=== PATIENT | male | born 1980 ===

== ENCOUNTER 2018-12-02 13:44 | Inpatient (IN) | payer OTHER ==
[2018-12-02 14:01] VITALS: BMI 30.9
[2018-12-02] MEDS ORDERED: Sodium Chloride 0.9% 1,000 ML IV STA ×2 (14:26→14:37)
--- NOTE | 2018-12-02 14:59 | ED PDOC ---
HPI: Skin/Bite Injury Time Seen by Provider: 12/02/18 14:22 Chief Complaint (Nursing): Abnormal Skin Integrity Chief Complaint (Provider): Fever and pain to the left buttock History Per: Patient History/Exam Limitations: no limitations Onset/Duration Of Symptoms: Days (2) Current Symptoms Are (Timing): Still Present Location Of Injury: Left: Buttock Quality Of Symptoms: Painful Additional Complaint(s): 38 year old male presents to the ED for an evaluation of fever and pain to the left buttock onset for one weeks. Patient thinks he has an abscess that was not there before. Patient states his brother gets them frequently. Initially, patient had bumps 2 days ago that became painful that patient cannot lay flat on his back. He feels weak, fibrile and has body aches. Otherwise, he denies any other complaints. Past Medical History Reviewed: Historical Data, Nursing Documentation, Vital Signs Vital Signs: Last Vital Signs Temp 100.6 F H 12/02/18 14:07 Pulse 143 H 12/02/18 14:00 Resp 16 12/02/18 14:00 BP 130/89 12/02/18 14:00 Pulse Ox 97 12/02/18 14:00 - Medical History PMH: Diabetes - Surgical History Other surgeries: kidney transplant 6 years ago - Family History Family History: States: Unknown Family Hx - Home Medications Home Medications: Ambulatory Orders Medication Instructions Recorded Linagliptin [Tradjenta] 5 mg PO DAILY 12/02/[address] [Myfortic DR] 720 mg PO Q12 12/02/18 Tacrolimus [Prograf Cap] 5 mg PO Q12 12/02/18 predniSONE 2.5 mg PO QPM 12/02/18 predniSONE [predniSONE Tab] 5 mg PO DAILY 12/02/18 - Allergies Allergies/Adverse Reactions: Allergies Allergy/AdvReac Type Severity Reaction Status Date / Time No Known Allergies Allergy Verified 12/02/18 14:03 Review of Systems ROS Statement: Except As Marked, All Systems Reviewed And Found Negative Constitutional: Positive for: Fever, Weakness, Other (body ache ) Musculoskeletal: Positive for: Other (pain to the left buttock). Negative for: Leg Pain Physical Exam - Reviewed Nursing Documentation Reviewed: Yes Vital Signs Reviewed: Yes - Physical Exam Appears: Positive for: Well, Non-toxic, No Acute Distress Head Exam: Positive for: ATRAUMATIC, NORMAL INSPECTION, NORMOCEPHALIC Skin: Positive for: Normal Color, Warm, Dry Eye Exam: Positive for: Normal appearance Cardiovascular/Chest: Positive for: Regular Rate, Rhythm, Tachycardia Respiratory: Positive for: Normal Breath Sounds. Negative for: Respiratory Distress Gastrointestinal/Abdominal: Positive for: Normal Exam, Soft. Negative for: Ten derness Back: Positive for: Normal Inspection (No current drainage, no active drainage. Anus is normal ), Other (Left buttock: erythematous, tense, center appears to be open, positive induration. ) Neurological/Psych: Positive for: Awake, Alert, Normal Tone, Oriented (x3) - Laboratory Results Result Diagrams: 12/04/18 04:31 12/04/18 04:31 - ECG O2 Sat by Pulse Oximetry: 97 (RA) Pulse Ox Interpretation: Normal Medical Decision Making Medical Decision Making: Time: 14:25 Impression: 38 y/o male with abscess with possible sepsis. Patient has tachycardia and tachypneic. Will proceed with sepsis protocol. Further labs and culture. Will start patient on Acetaminophen and reassess patient Plan: BBK type and screen Venous blood shock panel BMP CBC w/ differential PTT Prothrombin Time Normal Saline 1000 mls/hr Toradol 30mg Acetaminophen 975mg Culture blood Wound culture 15:[address] Marshall pending reevaluation Scribe Attestation: Documented by Shanell Hoskins, acting as a scribe for Rose Marie Quesada MD Provider Scribe Attestation: All medical record entries made by the Scribe were at my direction and personally dictated by me. I have reviewed the chart and agree that the record accurately reflects my personal performance of the history, physical exam, medical decision making, and the department course for this patient. I have also personally directed, reviewed, and agree with the discharge instructions and disposition. Disposition - Clinical Impression Clinical Impression: Severe sepsis, Cellulitis and abscess of buttock, DKA (diabetic ketoacidoses) - Disposition Disposition: Transfer of Care Disposition Time: 15:00 Condition: FAIR Patient Signed Over To: Campbell Marshall
[2018-12-02 15:13] LABS: VENOUS BLOOD GAS BASE EXCESS -14.3 mmol/L (0.0-2.0); VENOUS BLOOD GAS PCO2 28 mmHg (40-60); VENOUS BLOOD GAS PO2 28 mm/Hg (30-55); VENOUS BLOOD PH 7.23 (7.32-7.43)
[2018-12-02 15:29] LABS: BASO % 0.2 % (0.0-2.0); EOS % 0.2 % (0.0-4.0); HEMOGLOBIN 14.9 g/dL (12.0-18.0); LYMPH # 0.3 K/uL (1.0-4.3); LYMPH % 1.9 % (20.0-40.0); MEAN CELL VOLUME 85.1 fl (80.0-94.0); MEAN CORPUSCULAR HEMOGLOBIN 27.4 pg (27.0-31.0); MEAN CORPUSCULAR HGB CONC 32.2 g/dL (33.0-37.0); MEAN PLATELET VOLUME 9.1 fl (7.2-11.7); MONO # 1.7 K/uL (0.0-0.8); MONO % 10.3 % (0.0-10.0); NEUT # 14.6 K/uL (1.8-7.0); NEUT % 87.4 % (50.0-75.0); NRBC % 0.1 % (0.0-0.0); PLATELET COUNT 249 K/uL (130-400); RBC 5.43 Mil/uL (4.40-5.90); RED CELL DISTRIBUTION WIDTH 13.1 % (11.5-14.5); WHITE BLOOD COUNT 16.8 K/uL (4.8-10.8)
[2018-12-02 15:35] LABS: INR 1.1; PROTHROMBIN TIME 12.5 Seconds (9.8-13.1)
[2018-12-02 15:37] LABS: PARTIAL THROMBOPLASTIN TIME 32.7 Seconds (25.6-37.1)
[2018-12-02 15:54] LABS: CALCIUM 9.9 mg/dL (8.4-10.2)
[2018-12-02] MEDS ORDERED: Insulin Regular 100 units/ml SC STA (15:54)
[2018-12-02] MEDS ORDERED: Glucagon Recombinant 1 mg Inj IM PRN (16:01)
[2018-12-02] MEDS ORDERED: Dextrose 50% SYRINGE Inj (50 ml) IV PRN (16:01)
--- NOTE | 2018-12-02 16:11 | ED PDOC ---
- Laboratory Results Result Diagrams: 12/02/18 14:30 12/02/18 14:30 Lab Results: pO2 28 mm/Hg (30-55) L 12/02/18 15:03 VBG pH 7.23 (7.32-7.43) L 12/02/18 15:03 VBG pCO2 28 mmHg (40-60) L 12/02/18 15:03 VBG HCO3 12.2 mmol/L 12/02/18 15:03 VBG Total CO2 12.6 mmol/L (22-28) L 12/02/18 15:03 VBG O2 Sat (Calc) 54.5 % (40-65) 12/02/18 15:03 VBG Base Excess -14.3 mmol/L (0.0-2.0) L 12/02/18 15:03 VBG Potassium 5.2 mmol/L (3.6-5.2) 12/02/18 15:03 Sodium 127.0 mmol/L (132-148) L 12/02/18 15:03 Chloride 89.0 mmol/L (98-107) L 12/02/18 15:03 Glucose 470 mg/dL (75-110) H* 12/02/18 15:03 Lactate 2.2 mmol/L (0.7-2.1) H 12/02/18 15:03 FiO2 21.0 % 12/02/18 15:03 Blood Gas Comments Lac=2.2 12/02/18 15:03 Crit Value Called To brandi Brower 12/02/18 15:03 Crit Value Called By 22 12/02/18 15:03 Crit Value Read Back Y 12/02/18 15:03 Blood Gas Notified Time 1513 12/02/18 15:03 PT 12.5 Seconds (9.8-13.1) 12/02/18 14:30 INR 1.1 12/02/18 14:30 APTT 32.7 Seconds (25.6-37.1) 12/02/18 14:30 - ECG O2 Sat by Pulse Oximetry: 97 (RA) - Progress Re-evaluation Time: 16:12 Condition: Re-examined - Critical Care Total Time (In Min): 60 Documented Critical Care: Time excludes all time spent performint seperately billable procedures Medical Decision Making Medical Decision Making: Pt has severe sepsis with lactae of 2.2 with cellulitis as source. Will start on IV Zosyn and Vanco but adjust dose for h/o renal transplant. IV fluids with bolus given. Pt also in DKA with anion gap 28 and HCO3 10. Insulin drip started. Will admit to ICU and med service Disposition - Clinical Impression Clinical Impression: Severe sepsis, Cellulitis and abscess of buttock, DKA (diabetic ketoacidoses) - POA Present On Arrival: None - Disposition Disposition: Admitted as In-Patient Disposition Time: 16:12 Condition: FAIR Forms: [facility] (Bulgarian)
[2018-12-02] MEDS ORDERED: Insulin Regular 100 units/ml ONE (16:19)
--- NOTE | 2018-12-02 17:47 | CP.CCUPN ---
<LowesSultan - Last Filed: 12/02/18 18:41> CCU Subjective - Physician Review Subjective (Free Text): 12/02/18 17:40 38 year old Male with PMHx renal transplant 6 years ago secondary to polycystic kidney disease and DMII diagnosed a year ago presented to [facility] ED with complaints of tactile fever (100.0 F tmax at home) x 2 days associated with abscess on left gluteus draining serosanguinous fluids x 4 days. Patient reports left buttock has discomfort but denies any severe pain. Patient was taking Tylenol for tactile fever. Denies any injury or insect bites to gluteal area. Denies any nausea, vomiting, chills, abdominal pain, dizziness, hematuria or dysuria. In ED, patient was found to be tachycardiac and febrile. CBC shows WBC of 16.8 with LA of 2.2. Patient was also found to be hyperglycemic with glucose of 470 and DKA. ICU was consulted for management of sepsis and DKA. ROS: All 12 systems reviewed and negative except as mentioned in HPI PMHx: polycystic kidney disease s/p B/L renal transplant, DMII Surgery hx: B/L renal transplant Social hx: Denies smoking cigarettes or using drugs. Social EtOH use Family hx: Father: PKD Allergies: NKDA Medications: Prednisone 5 mg AM, 2.5 mg PM, Linagliptin 5 mg po daily, Mycophenolic acid 720 mg po BID, tacrolimus 5 mg po q12 [employer] Safety [employer] Health Technician: Dr. Mehta at [facility] CCU Objective - Vital Signs / Intake & Output Vital Signs (Last 4 hours): Vital Signs Temp Pulse Resp BP Pulse Ox 12/02/18 17:03 105 H 18 122/86 99 12/02/18 16:12 97 12/02/18 16:11 99 F 12/02/18 15:12 97 12/02/18 15:11 100.4 F H 12/02/18 14:07 100.6 F H 12/02/18 14:00 98.4 F 143 H 16 130/89 97 Intake and Output (Last 8hrs): Intake & Output 12/02/18 12/02/18 12/02/18 06:59 14:59 22:59 Weight 112.491 kg - Physical Exam Head: Positive for: Atraumatic, Normocephalic Pupils: Positive for: PERRL Extroacular Muscles: Positive for: EOMI Conjunctiva: Positive for: Normal Mouth: Positive for: Moist Mucous Membranes Pharnyx: Positive for: Normal Neck: Positive for: Normal Range of Motion. Negative for: Meningeal Signs, MIDLINE TENDERNESS, Lymphadenopathy Respiratory/Chest: Positive for: Clear to Auscultation, Good Air Exchange. Negative for: Respiratory Distress, Accessory Muscle Use, Wheezes, Decreased Breath Sounds, Rhonchi Cardiovascular: Positive for: Regular Rate and Rhythm, Normal S1, S2, Tachycardic. Negative for: Murmurs Abdomen: Positive for: Distention, Normal Bowel Sounds. Negative for: Tenderness, Peritoneal Signs, Rebound, Guarding Genitourinary Male: Positive for: Other Back: Positive for: Other (5 cm x 5 cm erythematous, warm indurated area on left gluteal with cental skin erosion and mild drainage. No fluctuance. non-tender. Car Deliverer: SOUMYA Ramires) Upper Extremity: Positive for: Normal Inspection. Negative for: Edema Lower Extremity: Positive for: Normal Inspection. Negative for: Edema, CALF TENDERNESS Neurological: Positive for: GCS=15, CN II-XII Intact, Speech Normal Skin: Positive for: Warm, Normal Color Psychiatric: Positive for: Alert, Oriented x 3, Normal Insight, Normal Concentration - Medications Active Medications: Active Medications Generic Name Dose Route Start Last Admin Trade Name Freq PRN Reason Stop Dose Admin Dextrose 0 ml 12/02/18 16:01 Dextrose 50% Inj IV STAT PRN Hypoglycemia Protocol Protocol Dextrose 0 gm 12/02/18 16:01 Glutose 15 PO ONCE PRN Hypoglycemia Protocol Protocol Glucagon 0 mg 12/02/18 16:01 Glucagen Diagnostic Kit IM STAT PRN Hypoglycemia Protocol Protocol Insulin Human Regular 100 101 mls @ 10.1 mls/hr 12/02/18 16:15 12/02/18 17:03 units/ Sodium Chloride IV 10.1 mls/hr .Q10H ELIESER Administration Protocol 10 UNITS/HR - Patient Studies Lab Studies: Lab Studies 12/02/18 12/02/18 12/02/18 Range/Units 16:21 15:03 14:30 WBC (4.8-10.8) K/uL RBC (4.40-5.90) Mil/uL Hgb (12.0-18.0) g/dL Hct (35.0-51.0) % MCV (80.0-94.0) fl MCH (27.0-31.0) pg MCHC (33.0-37.0) g/dL RDW (11.5-14.5) % Plt Count (130-400) K/uL MPV (7.2-11.7) fl Neut % (Auto) (50.0-75.0) % Lymph % (Auto) (20.0-40.0) % Thomas % (Auto) (0.0-10.0) % Eos % (Auto) (0.0-4.0) % Baso % (Auto) (0.0-2.0) % Neut # (Auto) (1.8-7.0) K/uL Lymph # (Auto) (1.0-4.3) K/uL Thomas # (Auto) (0.0-0.8) K/uL Eos # (Auto) (0.0-0.7) K/uL Baso # (Auto) (0.0-0.2) K/uL PT 12.5 (9.8-13.1) Seconds INR 1.1 APTT 32.7 (25.6-37.1) Seconds pO2 28 L (30-55) mm/Hg VBG pH 7.23 L (7.32-7.43) VBG pCO2 28 L (40-60) mmHg VBG HCO3 12.2 mmol/L VBG Total CO2 12.6 L (22-28) mmol/L VBG O2 Sat (Calc) 54.5 (40-65) % VBG Base Excess -14.3 L (0.0-2.0) mmol/L VBG Potassium 5.2 (3.6-5.2) mmol/L Glucose 470 H* (75-110) mg/dL Lactate 2.2 H (0.7-2.1) mmol/L FiO2 21.0 % Blood Gas Comments Lac=2.2 Crit Value Called To brandi Brower Crit Value Called By 22 Crit Value Read Back Y Blood Gas Notified Time 1513 Sodium 127.0 L (132-148) mmol/l Potassium (3.6-5.0) MMOL/L Chloride 89.0 L (98-107) mmol/L Carbon Dioxide (22-30) mmol/L Anion Gap (10-20) BUN (9-20) mg/dl Creatinine (0.8-1.5) mg/dl Est GFR ( Amer) Est GFR (Non-Af Amer) POC Glucose (mg/dL) 462 H* (65-110) mg/dL Random Glucose (75-110) mg/dL Calcium (8.4-10.2) mg/dL Venous Blood Potassium 5.2 (3.6-5.2) mmol/L 12/02/18 12/02/18 Range/Units 14:30 14:30 WBC 16.8 H (4.8-10.8) K/uL RBC 5.43 (4.40-5.90) Mil/uL Hgb 14.9 (12.0-18.0) g/dL Hct 46.2 (35.0-51.0) % MCV 85.1 (80.0-94.0) fl MCH 27.4 (27.0-31.0) pg MCHC 32.2 L (33.0-37.0) g/dL RDW 13.1 (11.5-14.5) % Plt Count 249 (130-400) K/uL MPV 9.1 (7.2-11.7) fl Neut % (Auto) 87.4 H (50.0-75.0) % Lymph % (Auto) 1.9 L (20.0-40.0) % Thomas % (Auto) 10.3 H (0.0-10.0) % Eos % (Auto) 0.2 (0.0-4.0) % Baso % (Auto) 0.2 (0.0-2.0) % Neut # (Auto) 14.6 H (1.8-7.0) K/uL Lymph # (Auto) 0.3 L (1.0-4.3) K/uL Thomas # (Auto) 1.7 H (0.0-0.8) K/uL Eos # (Auto) 0.0 (0.0-0.7) K/uL Baso # (Auto) 0.0 (0.0-0.2) K/uL PT (9.8-13.1) Seconds INR APTT (25.6-37.1) Seconds pO2 (30-55) mm/Hg VBG pH (7.32-7.43) VBG pCO2 (40-60) mmHg VBG HCO3 mmol/L VBG Total CO2 (22-28) mmol/L VBG O2 Sat (Calc) (40-65) % VBG Base Excess (0.0-2.0) mmol/L VBG Potassium (3.6-5.2) mmol/L Glucose (75-110) mg/dL Lactate (0.7-2.1) mmol/L FiO2 % Blood Gas Comments Crit Value Called To Crit Value Called By Crit Value Read Back Blood Gas Notified Time Sodium 128 L (132-148) mmol/l Potassium 5.0 (3.6-5.0) MMOL/L Chloride 95 L (98-107) mmol/L Carbon Dioxide 10 L* (22-30) mmol/L Anion Gap 28 H (10-20) BUN 31 H (9-20) mg/dl Creatinine 1.9 H (0.8-1.5) mg/dl Est GFR ( Amer) 49 Est GFR (Non-Af Amer) 40 POC Glucose (mg/dL) (65-110) mg/dL Random Glucose 449 H* (75-110) mg/dL Calcium 9.9 (8.4-10.2) mg/dL Venous Blood Potassium (3.6-5.2) mmol/L Laboratory Results - last 24 hr 12/02/18 12/02/18 12/02/18 14:30 14:30 14:30 WBC 16.8 H RBC 5.43 Hgb 14.9 Hct 46.2 MCV 85.1 MCH 27.4 MCHC 32.2 L RDW 13.1 Plt Count 249 MPV 9.1 Neut % (Auto) 87.4 H Lymph % (Auto) 1.9 L Thomas % (Auto) 10.3 H Eos % (Auto) 0.2 Baso % (Auto) 0.2 Neut # (Auto) 14.6 H Lymph # (Auto) 0.3 L Thomas # (Auto) 1.7 H Eos # (Auto) 0.0 Baso # (Auto) 0.0 PT 12.5 INR 1.1 APTT 32.7 pO2 VBG pH VBG pCO2 VBG HCO3 VBG Total CO2 VBG O2 Sat (Calc) VBG Base Excess VBG Potassium Glucose Lactate FiO2 Blood Gas Comments Crit Value Called To Crit Value Called By Crit Value Read Back Blood Gas Notified Time Sodium 128 L Potassium 5.0 Chloride 95 L Carbon Dioxide 10 L* Anion Gap 28 H BUN 31 H Creatinine 1.9 H Est GFR ( Amer) 49 Est GFR (Non-Af Amer) 40 POC Glucose (mg/dL) Random Glucose 449 H* Calcium 9.9 Venous Blood Potassium 12/02/18 12/02/18 15:03 16:21 WBC RBC Hgb Hct MCV MCH MCHC RDW Plt Count MPV Neut % (Auto) Lymph % (Auto) Thomas % (Auto) Eos % (Auto) Baso % (Auto) Neut # (Auto) Lymph # (Auto) Thomas # (Auto) Eos # (Auto) Baso # (Auto) PT INR APTT pO2 28 L VBG pH 7.23 L VBG pCO2 28 L VBG HCO3 12.2 VBG Total CO2 12.6 L VBG O2 Sat (Calc) 54.5 VBG Base Excess -14.3 L VBG Potassium 5.2 Glucose 470 H* Lactate 2.2 H FiO2 21.0 Blood Gas Comments Lac=2.2 Crit Value Called To brandi Brower Crit Value Called By 22 Crit Value Read Back Y Blood Gas Notified Time 1513 Sodium 127.0 L Potassium Chloride 89.0 L Carbon Dioxide Anion Gap BUN Creatinine Est GFR ( Amer) Est GFR (Non-Af Amer) POC Glucose (mg/dL) 462 H* Random Glucose Calcium Venous Blood Potassium 5.2 Fingerstick Blood Sugar Results: 462 Review of Systems - Review of Systems Review of Systems: All 12 systems reviewed and negative except as mentioned in HPI Assessment/Plan - Assessment and Plan (Free Text) Assessment: 38 year old Male with PMHx renal transplant 6 years ago secondary to polycystic kidney disease and DMII admitted to ICU for DKA and sepsis Sepsis likely secondary to left gluteal abscess -Low grade fever (100.6 in ED) and tachycardia -wbc 16.8 with LA 2.2 -s/p 2 L NS in ED -s/p Vanco 500 mg ivpv and zosyn 2.25 mg ivpb in ED -c/w Vancomycin 500 mg q12 -ID consult: Dr. Torres, recommends Meropenem 500 mg q8 hours -General surgery consult: f/u recs -F/U CT pelvis -F/U blood cx, urine cx and wound cx Diabetic Ketoacidosis -awake, alert and oriented, not in acute distress -VBG shows Ph of 7.23, Anion gap of 28 with HCO3 of 10 -s/p 10 units SC regular insulin in ED -Insulin drip started in ED @10 units/hr -Neurocheck -f/u ABG and AM labs Diet: -moderate carbohydrate diet DVT prophylaxis: -SCDs for now Plan discussed with Dr. Thanh Saldaña, pgy-2 <[employer] - Last Filed: 12/03/18 07:29> Assessment/Plan - Assessment and Plan (Free Text) Plan: Attestation: Patient seen and examined at the bedside with Resident Dr. Sagrario Saldaña; and I agree with his outline of plans and management documented above as discussed, reflecting my review of all applicable clinical data, and participation in the care of the patient throughout the day in ICU; today, December 02, 2018.
[2018-12-02 18:26] LABS: BANDS 4 % (0-2); BASOPHIL 1 % (0-2); LYMPHOCYTE 8 % (20-50); MONOCYTE 11 % (0-10); NEUTROPHIL 76 % (42-75); PLATELET ESTIMATE NORMAL (NORMAL); TOTAL CELLS COUNTED 100
--- NOTE | 2018-12-02 18:44 | CT ---
Date of service: 12/02/2018 PROCEDURE: CT pelvis HISTORY: r/o abscess of left buttock COMPARISON: Not available TECHNIQUE: 2.5 mm contiguous axial sections were acquired through the pelvis. Sagittal and coronal images were reformatted from the axial scan. Contrast administered: None Total exam DLP: 926.23 mGy-cm This CT exam was performed using 1 or more of the following dose reduction techniques: Automated exposure control, adjustment of the mA and/or kV according to patient size, and/or use of iterative reconstruction technique. FINDINGS: In the left gluteal subcutaneous soft tissues, there is heterogeneous increased attenuation. There is thickening of the overlying skin. There is some confluent density without jamie fluid collection. Likely phlegmon within the generalized picture of cellulitis. This phlegmon demonstrate mild mass effect upon the left gluteus renzo muscle. There is no evidence of myositis. No evidence of abscess or cellulitis elsewhere. There is a transplant kidney in the right iliac fossa. No hydronephrosis. The urinary bladder is unremarkable. Normal prostate. Visualized bowel loops are unremarkable. IMPRESSION: Left gluteal cellulitis with probable phlegmon. No evidence of jamie abscess.
[2018-12-02] MEDS ORDERED: Lidocaine 2% Inj (20ml) INFIL ONE (19:47)
[2018-12-02] MEDS ORDERED: Povidone Iodine Oint 10% Foilpak UD ONE (19:49)
[2018-12-02] MEDS: Meropenem 500 MG in Sodium Chloride 0.9% 100 ML IVPB SCH (20:34)
[2018-12-02 20:59] LABS: SQUAMOUS EPITHIAL 2 /hpf (0-5); URINE BACTERIA OCC (<OCC); URINE BILIRUBIN NEGATIVE (NEGATIVE); URINE BLOOD SMALL (NEGATIVE); URINE CLARITY TURBID (Clear); URINE COLOR YELLOW (YELLOW); URINE GLUCOSE (UA) >=500 mg/dL (NEGATIVE); URINE LEUKOCYTE ESTERASE LARGE Leu/uL (Negative); URINE PROTEIN 100 mg/dL (NEGATIVE); URINE UROBILINOGEN 0.2-1.0 mg/dL (0.2-1.0); WBC CLUMPS RARE /hpf
--- NOTE | 2018-12-02 21:06 | CP.PCM.CON ---
History of Present Illness - History of Present Illness History of Present Illness: 38M with PMHx of DM, polycystic kidney disease s/p renal transplant 6 years ago, presents to the ED with complaints of left buttock pain and fever. General surgery consulted for left buttock abscess. Patient states he first noted butto ck abscess on Wednesday however, today he became febrile which prompted him to come to the hospital. Patient reports fevers and left buttock pain. Patient found to be in DKA as well. PMH: as stated above PSH: renal transplant 2012 All: NKDA Review of Systems - Review of Systems All systems: reviewed and no additional remarkable complaints except Review of Systems: as per HPI Past Patient History - Past Social History Smoking Status: Never Smoked - RENAL Other/Comment: Kidney transplant - ENDOCRINE/METABOLIC Hx Diabetes Mellitus Type 2: Yes - PSYCHIATRIC Hx Substance Use: No - SURGICAL HISTORY Hx Kidney Transplant: Yes - ANESTHESIA Hx Anesthesia: Yes Meds Allergies/Adverse Reactions: Allergies Allergy/AdvReac Type Severity Reaction Status Date / Time No Known Allergies Allergy Verified 12/02/18 14:03 - Medications Medications: Current Medications Dextrose (Dextrose 50% Inj) 0 ml IV STAT PRN; Protocol PRN Reason: Hypoglycemia Protocol Dextrose (Glutose 15) 0 gm PO ONCE PRN; Protocol PRN Reason: Hypoglycemia Protocol Glucagon (Glucagen Diagnostic Kit) 0 mg IM STAT PRN; Protocol PRN Reason: Hypoglycemia Protocol Home Med (Mycophenolic Acid Dr [Myfortic Dr]) 720 mg PO Q12 [facility] Insulin Human Regular 100 (units/ Sodium Chloride) 101 mls @ 10.1 mls/hr IV .Q10H [facility]; Protocol Last Admin: 12/02/18 17:03 Dose: 10.1 mls/hr Meropenem 500 mg/ Sodium (Chloride) 100 mls @ 100 mls/hr IVPB Q8 [facility]; Protocol Last Admin: 12/02/18 20:34 Dose: 100 mls/hr Vancomycin HCl 500 mg/ Sodium (Chloride) 100 mls @ 100 mls/hr IVPB Q12 [facility]; P rotocol Prednisone (Prednisone Tab) 5 mg PO DAILY [facility] Prednisone (Prednisone Tab) 2.5 mg PO QPM [facility] Sitagliptin Phosphate (Januvia) 100 mg PO DAILY [facility] Tacrolimus (Prograf Cap) 5 mg PO Q12 [facility] Physical Exam - Constitutional Appears: No Acute Distress - Head Exam Head Exam: NORMOCEPHALIC - Eye Exam Eye Exam: Normal appearance - ENT Exam ENT Exam: Mucous Membranes Moist - Respiratory Exam Respiratory Exam: NORMAL BREATHING PATTERN - Cardiovascular Exam Cardiovascular Exam: +S1, +S2 - GI/Abdominal Exam GI & Abdominal Exam: Soft. absent: Tenderness - Neurological Exam Neurological exam: Alert, Oriented x3 - Psychiatric Exam Psychiatric exam: Normal Mood - Skin Skin Exam: Erythema, Warm Additional comments: left buttock abscess with central necrotic region fluctuant purulent drainage Results - Vital Signs Recent Vital Signs: Last Vital Signs Temp 98.4 F 12/02/18 19:27 Pulse 110 H 12/02/18 19:27 Resp 18 12/02/18 19:27 BP 119/71 12/02/18 19:27 Pulse Ox 100 12/02/18 19:27 - Labs Result Diagrams: 12/02/18 14:30 12/02/18 14:30 Labs: Laboratory Results - last 24 hr 12/02/18 12/02/18 12/02/18 14:30 14:30 14:30 WBC 16.8 H RBC 5.43 Hgb 14.9 Hct 46.2 MCV 85.1 MCH 27.4 MCHC 32.2 L RDW 13.1 Plt Count 249 MPV 9.1 Neut % (Auto) 87.4 H Lymph % (Auto) 1.9 L [place] % (Auto) 10.3 H Eos % (Auto) 0.2 Baso % (Auto) 0.2 Neut # (Auto) 14.6 H Lymph # (Auto) 0.3 L [place] # (Auto) 1.7 H Eos # (Auto) 0.0 Baso # (Auto) 0.0 Neutrophils % (Manual) 76 H Band Neutrophils % 4 H Lymphocytes % (Manual) 8 L Monocytes % (Manual) 11 H Basophils % (Manual) 1 Platelet Estimate Normal PT 12.5 INR 1.1 APTT 32.7 pO2 VBG pH VBG pCO2 VBG HCO3 VBG Total CO2 VBG O2 Sat (Calc) VBG Base Excess VBG Potassium Glucose Lactate FiO2 Blood Gas Comments Crit Value Called To Crit Value Called By Crit Value Read Back Blood Gas Notified Time Sodium 128 L Potassium 5.0 Chloride 95 L Carbon Dioxide 10 L* Anion Gap 28 H BUN 31 H Creatinine 1.9 H Est GFR ( Amer) 49 Est GFR (Non-Af Amer) 40 POC Glucose (mg/dL) Random Glucose 449 H* Calcium 9.9 Venous Blood Potassium Urine Color Urine Clarity Urine pH Ur Specific [place] Urine Protein Urine Glucose (UA) Urine Ketones Urine Blood Urine Nitrate Urine Bilirubin Urine Urobilinogen Ur Leukocyte Esterase Urine RBC (Auto) Urine WBC Clumps (Auto) Urine Microscopic WBC Ur Squamous Epith Cells Urine Bacteria 12/02/18 12/02/18 12/02/18 15:03 16:21 18:09 WBC RBC Hgb Hct MCV MCH MCHC RDW Plt Count MPV Neut % (Auto) Lymph % (Auto) [place] % (Auto) Eos % (Auto) Baso % (Auto) Neut # (Auto) Lymph # (Auto) [place] # (Auto) Eos # (Auto) Baso # (Auto) Neutrophils % (Manual) Band Neutrophils % Lymphocytes % (Manual) Monocytes % (Manual) Basophils % (Manual) Platelet Estimate PT INR APTT pO2 28 L VBG pH 7.23 L VBG pCO2 28 L VBG HCO3 12.2 VBG Total CO2 12.6 L VBG O2 Sat (Calc) 54.5 VBG Base Excess -14.3 L VBG Potassium 5.2 Glucose 470 H* Lactate 2.2 H FiO2 21.0 Blood Gas Comments Lac=2.2 Crit Value Called To brandi Brower Crit Value Called By 22 Crit Value Read Back Y Blood Gas Notified Time 1513 Sodium 127.0 L Potassium Chloride 89.0 L Carbon Dioxide Anion Gap BUN Creatinine Est GFR ( Amer) Est GFR (Non-Af Amer) POC Glucose (mg/dL) 462 H* 393 H Random Glucose Calcium Venous Blood Potassium 5.2 Urine Color Urine Clarity Urine pH Ur Specific [place] Urine Protein Urine Glucose (UA) Urine Ketones Urine Blood Urine Nitrate Urine Bilirubin Urine Urobilinogen Ur Leukocyte Esterase Urine RBC (Auto) Urine WBC Clumps (Auto) Urine Microscopic WBC Ur Squamous Epith Cells Urine Bacteria 12/02/18 12/02/18 19:11 20:40 WBC RBC Hgb Hct MCV MCH MCHC RDW Plt Count MPV Neut % (Auto) Lymph % (Auto) [place] % (Auto) Eos % (Auto) Baso % (Auto) Neut # (Auto) Lymph # (Auto) [place] # (Auto) Eos # (Auto) Baso # (Auto) Neutrophils % (Manual) Band Neutrophils % Lymphocytes % (Manual) Monocytes % (Manual) Basophils % (Manual) Platelet Estimate PT INR APTT pO2 VBG pH VBG pCO2 VBG HCO3 VBG Total CO2 VBG O2 Sat (Calc) VBG Base Excess VBG Potassium Glucose Lactate FiO2 Blood Gas Comments Crit Value Called To Crit Value Called By Crit Value Read Back Blood Gas Notified Time Sodium Potassium Chloride Carbon Dioxide Anion Gap BUN Creatinine Est GFR ( Amer) Est GFR (Non-Af Amer) POC Glucose (mg/dL) 266 H Random Glucose Calcium Venous Blood Potassium Urine Color Yellow Urine Clarity Turbid Urine pH 6.0 Ur Specific [place] 1.024 Urine Protein 100 Urine Glucose (UA) >=500 Urine Ketones 80 Urine Blood Small Urine Nitrate Negative Urine Bilirubin Negative Urine Urobilinogen 0.2-1.0 Ur Leukocyte Esterase Large Urine RBC (Auto) 7 H Urine WBC Clumps (Auto) Rare H Urine Microscopic WBC 819 H Ur Squamous Epith Cells 2 Urine Bacteria Occ H Assessment & Plan - Assessment and Plan (Free Text) Assessment: 38M with DKA and left buttock abscess Plan: -Bedside incision and drainage -Wound cultures -ABx - DKA management per medicine team -C/w local wound care -Daily packing change -Will follow Further recs per Dr. Keanu Rosales PGY3 Incision and Drainage - Time Out Time Out: Side verified, Site verified, Patient ID confirmed, Sterile procedures obs. - Consent obtained Consent obtained: Written - Performed by Performed by: Mid-level Provider - Indications Indications: Cutaneous abscess - Contraindications Contraindications: None - Location Location: Left (buttock) - Dimensions Dimensions Length cm: 3 Dimensions width cm: 3 - Anesthetic Technique Anesthetic Technique: Local - Anesthetic Anesthetic: Lidocaine 2% - Procedure Procedure: Usual prep and drape, cm incision (1x1), Overlying area fluctuance, # scalpel used (11), Explored for loculations, Irrigated, Packed with sterile gauze - Drained Drained: ml pus (50) - Post-procedure Post procedure: Neurovascular status norm - Complications Complications: None - Patient tolerated procedure Patient tolerated procedure: Well
[2018-12-02 21:38] LABS: VENOUS BLOOD GAS PCO2 36 mmHg (40-60); VENOUS BLOOD GAS PO2 29 mm/Hg (30-55); VENOUS BLOOD PH 7.28 (7.32-7.43)
[2018-12-02] MEDS: MYCOPHENOLIC ACID PO SCH (21:43)
[2018-12-03] MEDS: Meropenem 500 MG in Sodium Chloride 0.9% 100 ML IVPB SCH ×3 (00:41→16:23)
[2018-12-03 02:04] LABS: CALCIUM 9.2 mg/dL (8.4-10.2)
[2018-12-03] MEDS ORDERED: Potassium Chl 20 mEq in D5-NS 1,000 ML IV SCH (03:00)
[2018-12-03 05:17] LABS: BASO % 0.3 % (0.0-2.0); EOS # 0.5 K/uL (0.0-0.7); EOS % 3.9 % (0.0-4.0); HEMOGLOBIN 13.7 g/dL (12.0-18.0); LYMPH # 0.2 K/uL (1.0-4.3); LYMPH % 1.7 % (20.0-40.0); MEAN CELL VOLUME 84.3 fl (80.0-94.0); MEAN CORPUSCULAR HEMOGLOBIN 27.4 pg (27.0-31.0); MEAN CORPUSCULAR HGB CONC 32.5 g/dL (33.0-37.0); MEAN PLATELET VOLUME 8.7 fl (7.2-11.7); MONO # 1.2 K/uL (0.0-0.8); MONO % 8.7 % (0.0-10.0); NEUT # 11.4 K/uL (1.8-7.0); NEUT % 85.4 % (50.0-75.0); RBC 5.01 Mil/uL (4.40-5.90); RED CELL DISTRIBUTION WIDTH 12.8 % (11.5-14.5); WHITE BLOOD COUNT 13.4 K/uL (4.8-10.8)
[2018-12-03 05:39] LABS: ALB/GLOB RATIO 1.1 (1.0-2.1); ALBUMIN 3.3 g/dL (3.5-5.0); CALCIUM 9.4 mg/dL (8.4-10.2)
[2018-12-03] MEDS: Lactated Ringer's 1,000 ML IV SCH ×2 (08:15→09:21)
--- NOTE | 2018-12-03 08:48 | CP.PCM.PN ---
Subjective - Date & Time of Evaluation Date of Evaluation: 12/03/18 Time of Evaluation: 06:50 - Subjective Subjective: Patient seen and examined. No complaints. No acute events over night. Objective - Vital Signs/Intake and Output Vital Signs (last 24 hours): Temp Pulse Resp BP Pulse Ox 99.3 F 109 H 8 L 105/73 99 12/03/18 08:00 12/03/18 08:00 12/03/18 08:00 12/03/18 08:00 12/03/18 08:00 Intake and Output: 12/03/18 12/03/18 06:59 18:59 Intake Total 447 1999 Balance 447 1999 - Medications Medications: Current Medications Dextrose (Dextrose 50% Inj) 0 ml IV STAT PRN; Protocol PRN Reason: Hypoglycemia Protocol Dextrose (Glutose 15) 0 gm PO ONCE PRN; Protocol PRN Reason: Hypoglycemia Protocol Glucagon (Glucagen Diagnostic Kit) 0 mg IM STAT PRN; Protocol PRN Reason: Hypoglycemia Protocol Home Med (Mycophenolic Acid Dr [Myfortic Dr]) 720 mg PO Q12 [facility] Last Admin: 12/02/18 21:43 Dose: 720 mg Meropenem 500 mg/ Sodium (Chloride) 100 mls @ 100 mls/hr IVPB Q8 [facility]; Protocol Last Admin: 12/03/18 00:41 Dose: 100 mls/hr Vancomycin HCl 500 mg/ Sodium (Chloride) 100 mls @ 100 mls/hr IVPB Q12 [facility]; Protocol Last Admin: 12/03/18 05:30 Dose: 100 mls/hr Insulin Human Regular 100 (units/ Sodium Chloride) 101 mls @ 3.03 mls/hr IV .Q24H [facility]; Protocol Last Titration: 12/03/18 02:00 Dose: 3 units/hr, 3.03 mls/hr Potassium Chloride/Dextrose/Sod Cl (Potassium Chl 20 Meq In D5-Ns) 1,000 mls @ 150 mls/hr IV .Q6H40M [facility] Stop: 12/03/18 09:39 Last Admin: 12/03/18 03:27 Dose: 150 mls/hr Lactated Ringer's (Lactated Ringer's) 1,000 mls @ 1,000 mls/hr IV .Q1H [facility] Stop: 12/03/18 10:29 Prednisone (Prednisone Tab) 5 mg PO DAILY [facility] Prednisone (Prednisone Tab) 2.5 mg PO QPM [facility] Last Admin: 12/02/18 22:44 Dose: 2.5 mg Sitagliptin Phosphate (Januvia) 100 mg PO DAILY [facility] Tacrolimus (Prograf Cap) 5 mg PO Q12 [facility] Last Admin: 12/02/18 21:43 Dose: 5 mg - Labs Labs: 12/03/18 04:15 12/03/18 04:15 PT 12.5 Seconds (9.8-13.1) 12/02/18 14:30 INR 1.1 12/02/18 14:30 APTT 32.7 Seconds (25.6-37.1) 12/02/18 14:30 - Constitutional Appears: No Acute Distress - Head Exam Head Exam: NORMOCEPHALIC - Eye Exam Eye Exam: EOMI, Normal appearance - ENT Exam ENT Exam: Mucous Membranes Moist - Respiratory Exam Respiratory Exam: NORMAL BREATHING PATTERN - Cardiovascular Exam Cardiovascular Exam: +S1, +S2 - GI/Abdominal Exam GI & Abdominal Exam: Soft - Neurological Exam Neurological Exam: Alert, Awake, Oriented x3 - Psychiatric Exam Psychiatric exam: Normal Mood - Skin Skin Exam: Dry, Intact, Warm Assessment and Plan - Assessment and Plan (Free Text) Assessment: 38M s/p I&D of left buttock abscess Plan: Packing to be changed later today C/w ABx daily local wound care strict glycemic control Medical management per ICU team Further recs per Dr. Keanu Rosales PGY3
--- NOTE | 2018-12-03 08:48 | CP.CCUPN ---
CCU Subjective - Physician Review Subjective (Free Text): Uneventful overnight, s/p I&D, on insulin drip at 3 units/hr, no distress, remains alert and awake, no recurrent fever spikes. BS levels averaging mid 200s. Feels hungry. Still relatively tachycardic, HR 110s sinus, RR 16, 100% on RA. Recd approx 2 liters crystalloid in ER, otherwise IVFs at 150 ml/hr. ROS: No other pertinent negs or positives on 10+ system review PMSFH: All other Nursing and physician documentation reviewed to date; no new pertinent info noted relevant to current medical problems. EXAM- HEENT: no icterus, no gaze preference NECK: No JVD visible, supple, carotids equal upstroke bilat/no bruit CHEST: clear bilat BS, no wheezes audible bilaterally. HEART: regular, tachy S1S2, no rubs or murmurs noted ABD: soft, nontender, no guarding, no organomegaly, BS hypoactive. EXT: no leg edema, no calf tenderness or palpable cords, distal pulses intact and symmetrical. Dressing intact over L buttock. NEURO: no gross focal deficits. SKIN: no rashes, warm and dry LABS: WBC= 13.4 HGB= 13.7 PLTs= 204K Na= 133 K= 3.7 CL= 103 HCO3= 18 BUN/Cr= 41/1.8 BS= 231 IMPRESSION / MAJOR PROBLEMS NOW: 1. DKA 2. Left Gluteal cellulitis with Phlegmon/ abscess 3. Azotemia / Dehydration 4. h/o Renal Trsp for Polycystic Renal Disease on Immunosuppression PLAN: 1. More volume expansion. 2. Insulin drip and IV fluids; anion gap has normalized, but serum bicarb still below 20. Would get HGBA1c, and Endocrine eval. 3. Empiric Abx coverage, s/p I& D, f/u cultures. 4. Moderate Consistent Carb diet. 5. Continue PO Prednisone, Mycophen, Tacrolimus.
[2018-12-03] MEDS: MYCOPHENOLIC ACID PO SCH ×2 (09:34→21:17)
--- NOTE | 2018-12-03 11:40 | CP.PCM.CON ---
History of Present Illness - History of Present Illness History of Present Illness: Infectious Disease Consultation Note- Asked to see this patient at the request of and for sepsis and buttock abscess. HPI- patient is a 38M year old male with PMHx of DM, polycystic kidney disease s/p renal transplant 6 years ago, presented to the ED with complaints of left buttock pain and fever. Patient explains that he first noticed swelling in the left buttock region few days ago but it progressively worsened and he developed fever and hence he came to ER to be evaluated and treated. he states it started as pimple and progressed. Pt. was admitted to ICU and has had I and D of the abscess doen by surgical team already and fluid sent for culture. I had advised to start pt. on IV meropnem and vanco (renal dose) since he is immunosuppressed pending cx results. Pt. is also on insulin drip as he was found to be in DKA as well. Currently he denies any fever or chills, c/o pian in the buttock region where he has the abscess, denies any cough or sob, denies any dysurea, denies any abd pain.denies nay diarrhea PMH: as stated above PSH: renal transplant 2012 All: NKDA Review of Systems - Review of Systems Review of Systems: ROS- afebrile now but was febrile yesterday, denies any nausea or vomiting, denies any cough or sob, denies any chest pain, denies any abd. pain, denies any dysurea, c/o pain in the left buttock region where he has the abscess but less now Past Patient History - Past Social History Smoking Status: Never Smoked - CARDIAC Hx Cardiac Disorders: No - PULMONARY Hx Respiratory Disorders: No - NEUROLOGICAL Hx Neurological Disorder: No - HEENT Hx HEENT Problems: No - RENAL Other/Comment: Kidney transplant - ENDOCRINE/METABOLIC Hx Endocrine Disorders: Yes Hx Diabetes Mellitus Type 2: Yes - MUSCULOSKELETAL/RHEUMATOLOGICAL Hx Falls: No - PSYCHIATRIC Hx Substance Use: No - SURGICAL HISTORY Hx Kidney Transplant: Yes - ANESTHESIA Hx Anesthesia: Yes Meds Allergies/Adverse Reactions: Allergies Allergy/AdvReac Type Severity Reaction Status Date / Time No Known Allergies Allergy Verified 12/02/18 14:03 - Medications Medications: Current Medications Acetaminophen (Tylenol 325mg Tab) 975 mg PO Q6 PRN PRN Reason: Pain, moderate (4-7) Last Admin: 12/03/18 11:13 Dose: 975 mg Dextrose (Dextrose 50% Inj) 0 ml IV STAT PRN; Protocol PRN Reason: Hypoglycemia Protocol Dextrose (Glutose 15) 0 gm PO ONCE PRN; Protocol PRN Reason: Hypoglycemia Protocol Glucagon (Glucagen Diagnostic Kit) 0 mg IM STAT PRN; Protocol PRN Reason: Hypoglycemia Protocol Home Med (Mycophenolic Acid Dr [Myfortic Dr]) 720 mg PO Q12 [facility] Last Admin: 12/03/18 09:34 Dose: 720 mg Meropenem 500 mg/ Sodium (Chloride) 100 mls @ 100 mls/hr IVPB Q8 [facility]; Protocol Last Admin: 12/03/18 09:21 Dose: 100 mls/hr Vancomycin HCl 500 mg/ Sodium (Chloride) 100 mls @ 100 mls/hr IVPB Q12 [facility]; Protocol Last Admin: 12/03/18 05:30 Dose: 100 mls/hr Insulin Human Regular 100 (units/ Sodium Chloride) 101 mls @ 3.03 mls/hr IV .Q24H [facility]; Protocol Last Titration: 12/03/18 10:46 Dose: 5 units/hr, 5.05 mls/hr Prednisone (Prednisone Tab) 5 mg PO DAILY [facility] Last Admin: 12/03/18 09:23 Dose: 5 mg Prednisone (Prednisone Tab) 2.5 mg PO QPM [facility] Last Admin: 12/02/18 22:44 Dose: 2.5 mg Sitagliptin Phosphate (Januvia) 100 mg PO DAILY [facility] Last Admin: 12/03/18 09:19 Dose: 100 mg Tacrolimus (Prograf Cap) 5 mg PO Q12 [facility] Last Admin: 12/03/18 09:25 Dose: 5 mg Physical Exam - Constitutional Appears: No Acute Distress - Head Exam Head Exam: ATRAUMATIC - Eye Exam Eye Exam: EOMI, PERRL - ENT Exam ENT Exam: Normal Oropharynx - Neck Exam Neck exam: Positive for: Full Rom - Respiratory Exam Respiratory Exam: Clear to Auscultation Bilateral, NORMAL BREATHING PATTERN - Cardiovascular Exam Cardiovascular Exam: RRR, +S1, +S2 - GI/Abdominal Exam GI & Abdominal Exam: Normal Bowel Sounds, Soft Additional comments: NT, ND - Rectal Exam Additional comments: left buttoc region with 2 4 cm area of erythema nad has packing in place draining yellow fluid, no malodor , no fluctuation - Extremities Exam Extremities exam: Positive for: normal inspection - Neurological Exam Neurological exam: Alert, Oriented x3 Results - Vital Signs Recent Vital Signs: Last Vital Signs Temp 99.3 F 12/03/18 08:00 Pulse 108 H 12/03/18 10:00 Resp 16 12/03/18 10:00 BP 118/72 12/03/18 10:00 Pulse Ox 97 12/03/18 10:00 - Labs Result Diagrams: 12/03/18 04:15 12/03/18 04:15 Labs: Laboratory Results - last 24 hr 12/02/18 12/02/18 12/02/18 14:30 14:30 14:30 WBC 16.8 H RBC 5.43 Hgb 14.9 Hct 46.2 MCV 85.1 MCH 27.4 MCHC 32.2 L RDW 13.1 Plt Count 249 MPV 9.1 Neut % (Auto) 87.4 H Lymph % (Auto) 1.9 L [place] % (Auto) 10.3 H Eos % (Auto) 0.2 Baso % (Auto) 0.2 Neut # (Auto) 14.6 H Lymph # (Auto) 0.3 L [place] # (Auto) 1.7 H Eos # (Auto) 0.0 Baso # (Auto) 0.0 Neutrophils % (Manual) 76 H Band Neutrophils % 4 H Lymphocytes % (Manual) 8 L Monocytes % (Manual) 11 H Basophils % (Manual) 1 Platelet Estimate Normal PT 12.5 INR 1.1 APTT 32.7 pO2 VBG pH VBG pCO2 VBG HCO3 VBG Total CO2 VBG O2 Sat (Calc) VBG Base Excess VBG Potassium Glucose Lactate FiO2 Blood Gas Comments Crit Value Called To Crit Value Called By Crit Value Read Back Blood Gas Notified Time Sodium 128 L Potassium 5.0 Chloride 95 L Carbon Dioxide 10 L* Anion Gap 28 H BUN 31 H Creatinine 1.9 H Est GFR ( Amer) 49 Est GFR (Non-Af Amer) 40 POC Glucose (mg/dL) Random Glucose 449 H* Lactic Acid Calcium 9.9 Phosphorus Magnesium Total Bilirubin AST ALT Alkaline Phosphatase Total Protein Albumin Globulin Albumin/Globulin Ratio Venous Blood Potassium Urine Color Urine Clarity Urine pH Ur Specific [place] Urine Protein Urine Glucose (UA) Urine Ketones Urine Blood Urine Nitrate Urine Bilirubin Urine Urobilinogen Ur Leukocyte Esterase Urine RBC (Auto) Urine WBC Clumps (Auto) Urine Microscopic WBC Ur Squamous Epith Cells Urine Bacteria 12/02/18 12/02/18 12/02/18 15:03 16:21 18:09 WBC RBC Hgb Hct MCV MCH MCHC RDW Plt Count MPV Neut % (Auto) Lymph % (Auto) [place] % (Auto) Eos % (Auto) Baso % (Auto) Neut # (Auto) Lymph # (Auto) [place] # (Auto) Eos # (Auto) Baso # (Auto) Neutrophils % (Manual) Band Neutrophils % Lymphocytes % (Manual) Monocytes % (Manual) Basophils % (Manual) Platelet Estimate PT INR APTT pO2 28 L VBG pH 7.23 L VBG pCO2 28 L VBG HCO3 12.2 VBG Total CO2 12.6 L VBG O2 Sat (Calc) 54.5 VBG Base Excess -14.3 L VBG Potassium 5.2 Glucose 470 H* Lactate 2.2 H FiO2 21.0 Blood Gas Comments Lac=2.2 Crit Value Called To brandi Brower Crit Value Called By 22 Crit Value Read Back Y Blood Gas Notified Time 1513 Sodium 127.0 L Potassium Chloride 89.0 L Carbon Dioxide Anion Gap BUN Creatinine Est GFR ( Amer) Est GFR (Non-Af Amer) POC Glucose (mg/dL) 462 H* 393 H Random Glucose Lactic Acid Calcium Phosphorus Magnesium Total Bilirubin AST ALT Alkaline Phosphatase Total Protein Albumin Globulin Albumin/Globulin Ratio Venous Blood Potassium 5.2 Urine Color Urine Clarity Urine pH Ur Specific [place] Urine Protein Urine Glucose (UA) Urine Ketones Urine Blood Urine Nitrate Urine Bilirubin Urine Urobilinogen Ur Leukocyte Esterase Urine RBC (Auto) Urine WBC Clumps (Auto) Urine Microscopic WBC Ur Squamous Epith Cells Urine Bacteria 12/02/18 12/02/18 12/02/18 19:11 20:40 20:43 WBC RBC Hgb Hct MCV MCH MCHC RDW Plt Count MPV Neut % (Auto) Lymph % (Auto) [place] % (Auto) Eos % (Auto) Baso % (Auto) Neut # (Auto) Lymph # (Auto) [place] # (Auto) Eos # (Auto) Baso # (Auto) Neutrophils % (Manual) Band Neutrophils % Lymphocytes % (Manual) Monocytes % (Manual) Basophils % (Manual) Platelet Estimate PT INR APTT pO2 VBG pH VBG pCO2 VBG HCO3 VBG Total CO2 VBG O2 Sat (Calc) VBG Base Excess VBG Potassium Glucose Lactate FiO2 Blood Gas Comments Crit Value Called To Crit Value Called By Crit Value Read Back Blood Gas Notified Time Sodium Potassium Chloride Carbon Dioxide Anion Gap BUN Creatinine Est GFR ( Amer) Est GFR (Non-Af Amer) POC Glucose (mg/dL) 266 H 249 H Random Glucose Lactic Acid Calcium Phosphorus Magnesium Total Bilirubin AST ALT Alkaline Phosphatase Total Protein Albumin Globulin Albumin/Globulin Ratio Venous Blood Potassium Urine Color Yellow Urine Clarity Turbid Urine pH 6.0 Ur Specific [place] 1.024 Urine Protein 100 Urine Glucose (UA) >=500 Urine Ketones 80 Urine Blood Small Urine Nitrate Negative Urine Bilirubin Negative Urine Urobilinogen 0.2-1.0 Ur Leukocyte Esterase Large Urine RBC (Auto) 7 H Urine WBC Clumps (Auto) Rare H Urine Microscopic WBC 819 H Ur Squamous Epith Cells 2 Urine Bacteria Occ H 12/02/18 12/02/18 12/03/18 21:32 21:47 00:02 WBC RBC Hgb Hct MCV MCH MCHC RDW Plt Count MPV Neut % (Auto) Lymph % (Auto) [place] % (Auto) Eos % (Auto) Baso % (Auto) Neut # (Auto) Lymph # (Auto) [place] # (Auto) Eos # (Auto) Baso # (Auto) Neutrophils % (Manual) Band Neutrophils % Lymphocytes % (Manual) Monocytes % (Manual) Basophils % (Manual) Platelet Estimate PT INR APTT pO2 29 L VBG pH 7.28 L VBG pCO2 36 L VBG HCO3 16.5 VBG Total CO2 18.0 L VBG O2 Sat (Calc) 59.8 VBG Base Excess -9.0 L VBG Potassium 4.2 Glucose 260 H Lactate 1.8 FiO2 21.0 Blood Gas Comments Crit Value Called To Crit Value Called By Crit Value Read Back Blood Gas Notified Time Sodium 130.0 L Potassium Chloride 98.0 Carbon Dioxide Anion Gap BUN Creatinine Est GFR ( Amer) Est GFR (Non-Af Amer) POC Glucose (mg/dL) 236 H 275 H Random Glucose Lactic Acid Calcium Phosphorus Magnesium Total Bilirubin AST ALT Alkaline Phosphatase Total Protein Albumin Globulin Albumin/Globulin Ratio Venous Blood Potassium 4.2 Urine Color Urine Clarity Urine pH Ur Specific [place] Urine Protein Urine Glucose (UA) Urine Ketones Urine Blood Urine Nitrate Urine Bilirubin Urine Urobilinogen Ur Leukocyte Esterase Urine RBC (Auto) Urine WBC Clumps (Auto) Urine Microscopic WBC Ur Squamous Epith Cells Urine Bacteria 12/03/18 12/03/18 12/03/18 01:02 01:30 01:59 WBC RBC Hgb Hct MCV MCH MCHC RDW Plt Count MPV Neut % (Auto) Lymph % (Auto) [place] % (Auto) Eos % (Auto) Baso % (Auto) Neut # (Auto) Lymph # (Auto) [place] # (Auto) Eos # (Auto) Baso # (Auto) Neutrophils % (Manual) Band Neutrophils % Lymphocytes % (Manual) Monocytes % (Manual) Basophils % (Manual) Platelet Estimate PT INR APTT pO2 VBG pH VBG pCO2 VBG HCO3 VBG Total CO2 VBG O2 Sat (Calc) VBG Base Excess VBG Potassium Glucose Lactate FiO2 Blood Gas Comments Crit Value Called To Crit Value Called By Crit Value Read Back Blood Gas Notified Time Sodium 132 Potassium 3.8 Chloride 102 Carbon Dioxide 17 L Anion Gap 17 BUN 42 H Creatinine 1.9 H Est GFR ( Amer) 49 Est GFR (Non-Af Amer) 40 POC Glucose (mg/dL) 256 H 242 H Random Glucose 241 H Lactic Acid Calcium 9.2 Phosphorus 2.8 Magnesium 2.1 Total Bilirubin AST ALT Alkaline Phosphatase Total Protein Albumin Globulin Albumin/Globulin Ratio Venous Blood Potassium Urine Color Urine Clarity Urine pH Ur Specific [place] Urine Protein Urine Glucose (UA) Urine Ketones Urine Blood Urine Nitrate Urine Bilirubin Urine Urobilinogen Ur Leukocyte Esterase Urine RBC (Auto) Urine WBC Clumps (Auto) Urine Microscopic WBC Ur Squamous Epith Cells Urine Bacteria 12/03/18 12/03/18 12/03/18 03:03 03:57 04:10 WBC RBC Hgb Hct MCV MCH MCHC RDW Plt Count MPV Neut % (Auto) Lymph % (Auto) [place] % (Auto) Eos % (Auto) Baso % (Auto) Neut # (Auto) Lymph # (Auto) [place] # (Auto) Eos # (Auto) Baso # (Auto) Neutrophils % (Manual) Band Neutrophils % Lymphocytes % (Manual) Monocytes % (Manual) Basophils % (Manual) Platelet Estimate PT INR APTT pO2 VBG pH VBG pCO2 VBG HCO3 VBG Total CO2 VBG O2 Sat (Calc) VBG Base Excess VBG Potassium Glucose Lactate FiO2 Blood Gas Comments Crit Value Called To Crit Value Called By Crit Value Read Back Blood Gas Notified Time Sodium Potassium Chloride Carbon Dioxide Anion Gap BUN Creatinine Est GFR ( Amer) Est GFR (Non-Af Amer) POC Glucose (mg/dL) 243 H 246 H Random Glucose Lactic Acid 1.5 Calcium Phosphorus Magnesium Total Bilirubin AST ALT Alkaline Phosphatase Total Protein Albumin Globulin Albumin/Globulin Ratio Venous Blood Potassium Urine Color Urine Clarity Urine pH Ur Specific [place] Urine Protein Urine Glucose (UA) Urine Ketones Urine Blood Urine Nitrate Urine Bilirubin Urine Urobilinogen Ur Leukocyte Esterase Urine RBC (Auto) Urine WBC Clumps (Auto) Urine Microscopic WBC Ur Squamous Epith Cells Urine Bacteria 12/03/18 12/03/18 12/03/18 04:15 04:15 05:12 WBC 13.4 H RBC 5.01 Hgb 13.7 Hct 42.2 MCV 84.3 MCH 27.4 MCHC 32.5 L RDW 12.8 Plt Count 204 MPV 8.7 Neut % (Auto) 85.4 H Lymph % (Auto) 1.7 L [place] % (Auto) 8.7 Eos % (Auto) 3.9 Baso % (Auto) 0.3 Neut # (Auto) 11.4 H Lymph # (Auto) 0.2 L [place] # (Auto) 1.2 H Eos # (Auto) 0.5 Baso # (Auto) 0.0 Neutrophils % (Manual) Band Neutrophils % Lymphocytes % (Manual) Monocytes % (Manual) Basophils % (Manual) Platelet Estimate PT INR APTT pO2 VBG pH VBG pCO2 VBG HCO3 VBG Total CO2 VBG O2 Sat (Calc) VBG Base Excess VBG Potassium Glucose Lactate FiO2 Blood Gas Comments Crit Value Called To Crit Value Called By Crit Value Read Back Blood Gas Notified Time Sodium 133 Potassium 3.7 Chloride 103 Carbon Dioxide 18 L Anion Gap 16 BUN 41 H Creatinine 1.8 H Est GFR ( Amer) 52 Est GFR (Non-Af Amer) 43 POC Glucose (mg/dL) 250 H Random Glucose 231 H Lactic Acid Calcium 9.4 Phosphorus 2.0 L Magnesium 2.1 Total Bilirubin 0.4 AST 21 ALT 24 Alkaline Phosphatase 120 Total Protein 6.3 Albumin 3.3 L Globulin 3.0 Albumin/Globulin Ratio 1.1 Venous Blood Potassium Urine Color Urine Clarity Urine pH Ur Specific [place] Urine Protein Urine Glucose (UA) Urine Ketones Urine Blood Urine Nitrate Urine Bilirubin Urine Urobilinogen Ur Leukocyte Esterase Urine RBC (Auto) Urine WBC Clumps (Auto) Urine Microscopic WBC Ur Squamous Epith Cells Urine Bacteria 12/03/18 12/03/18 06:11 07:02 WBC RBC Hgb Hct MCV MCH MCHC RDW Plt Count MPV Neut % (Auto) Lymph % (Auto) [place] % (Auto) Eos % (Auto) Baso % (Auto) Neut # (Auto) Lymph # (Auto) [place] # (Auto) Eos # (Auto) Baso # (Auto) Neutrophils % (Manual) Band Neutrophils % Lymphocytes % (Manual) Monocytes % (Manual) Basophils % (Manual) Platelet Estimate PT INR APTT pO2 VBG pH VBG pCO2 VBG HCO3 VBG Total CO2 VBG O2 Sat (Calc) VBG Base Excess VBG Potassium Glucose Lactate FiO2 Blood Gas Comments Crit Value Called To Crit Value Called By Crit Value Read Back Blood Gas Notified Time Sodium Potassium Chloride Carbon Dioxide Anion Gap BUN Creatinine Est GFR ( Amer) Est GFR (Non-Af Amer) POC Glucose (mg/dL) 237 H 254 H Random Glucose Lactic Acid Calcium Phosphorus Magnesium Total Bilirubin AST ALT Alkaline Phosphatase Total Protein Albumin Globulin Albumin/Globulin Ratio Venous Blood Potassium Urine Color Urine Clarity Urine pH Ur Specific [place] Urine Protein Urine Glucose (UA) Urine Ketones Urine Blood Urine Nitrate Urine Bilirubin Urine Urobilinogen Ur Leukocyte Esterase Urine RBC (Auto) Urine WBC Clumps (Auto) Urine Microscopic WBC Ur Squamous Epith Cells Urine Bacteria Laboratory Results - last 72 hr 12/02/18 12/02/18 12/02/18 14:30 14:30 14:30 WBC 16.8 H RBC 5.43 Hgb 14.9 Hct 46.2 MCV 85.1 MCH 27.4 MCHC 32.2 L RDW 13.1 Plt Count 249 MPV 9.1 Neut % (Auto) 87.4 H Lymph % (Auto) 1.9 L [place] % (Auto) 10.3 H Eos % (Auto) 0.2 Baso % (Auto) 0.2 Neut # (Auto) 14.6 H Lymph # (Auto) 0.3 L [place] # (Auto) 1.7 H Eos # (Auto) 0.0 Baso # (Auto) 0.0 Neutrophils % (Manual) 76 H Band Neutrophils % 4 H Lymphocytes % (Manual) 8 L Monocytes % (Manual) 11 H Basophils % (Manual) 1 Platelet Estimate Normal PT 12.5 INR 1.1 APTT 32.7 pO2 VBG pH VBG pCO2 VBG HCO3 VBG Total CO2 VBG O2 Sat (Calc) VBG Base Excess VBG Potassium Glucose Lactate FiO2 Blood Gas Comments Crit Value Called To Crit Value Called By Crit Value Read Back Blood Gas Notified Time Sodium 128 L Potassium 5.0 Chloride 95 L Carbon Dioxide 10 L* Anion Gap 28 H BUN 31 H Creatinine 1.9 H Est GFR ( Amer) 49 Est GFR (Non-Af Amer) 40 POC Glucose (mg/dL) Random Glucose 449 H* Lactic Acid Calcium 9.9 Phosphorus Magnesium Total Bilirubin AST ALT Alkaline Phosphatase Total Protein Albumin Globulin Albumin/Globulin Ratio Venous Blood Potassium Urine Color Urine Clarity Urine pH Ur Specific [place] Urine Protein Urine Glucose (UA) Urine Ketones Urine Blood Urine Nitrate Urine Bilirubin Urine Urobilinogen Ur Leukocyte Esterase Urine RBC (Auto) Urine WBC Clumps (Auto) Urine Microscopic WBC Ur Squamous Epith Cells Urine Bacteria 12/02/18 12/02/18 12/02/18 15:03 16:21 18:09 WBC RBC Hgb Hct MCV MCH MCHC RDW Plt Count MPV Neut % (Auto) Lymph % (Auto) [place] % (Auto) Eos % (Auto) Baso % (Auto) Neut # (Auto) Lymph # (Auto) [place] # (Auto) Eos # (Auto) Baso # (Auto) Neutrophils % (Manual) Band Neutrophils % Lymphocytes % (Manual) Monocytes % (Manual) Basophils % (Manual) Platelet Estimate PT INR APTT pO2 28 L VBG pH 7.23 L VBG pCO2 28 L VBG HCO3 12.2 VBG Total CO2 12.6 L VBG O2 Sat (Calc) 54.5 VBG Base Excess -14.3 L VBG Potassium 5.2 Glucose 470 H* Lactate 2.2 H FiO2 21.0 Blood Gas Comments Lac=2.2 Crit Value Called To brandi Brower Crit Value Called By 22 Crit Value Read Back Y Blood Gas Notified Time 1513 Sodium 127.0 L Potassium Chloride 89.0 L Carbon Dioxide Anion Gap BUN Creatinine Est GFR ( Amer) Est GFR (Non-Af Amer) POC Glucose (mg/dL) 462 H* 393 H Random Glucose Lactic Acid Calcium Phosphorus Magnesium Total Bilirubin AST ALT Alkaline Phosphatase Total Protein Albumin Globulin Albumin/Globulin Ratio Venous Blood Potassium 5.2 Urine Color Urine Clarity Urine pH Ur Specific [place] Urine Protein Urine Glucose (UA) Urine Ketones Urine Blood Urine Nitrate Urine Bilirubin Urine Urobilinogen Ur Leukocyte Esterase Urine RBC (Auto) Urine WBC Clumps (Auto) Urine Microscopic WBC Ur Squamous Epith Cells Urine Bacteria 12/02/18 12/02/18 12/02/18 19:11 20:40 20:43 WBC RBC Hgb Hct MCV MCH MCHC RDW Plt Count MPV Neut % (Auto) Lymph % (Auto) [place] % (Auto) Eos % (Auto) Baso % (Auto) Neut # (Auto) Lymph # (Auto) [place] # (Auto) Eos # (Auto) Baso # (Auto) Neutrophils % (Manual) Band Neutrophils % Lymphocytes % (Manual) Monocytes % (Manual) Basophils % (Manual) Platelet Estimate PT INR APTT pO2 VBG pH VBG pCO2 VBG HCO3 VBG Total CO2 VBG O2 Sat (Calc) VBG Base Excess VBG Potassium Glucose Lactate FiO2 Blood Gas Comments Crit Value Called To Crit Value Called By Crit Value Read Back Blood Gas Notified Time Sodium Potassium Chloride Carbon Dioxide Anion Gap BUN Creatinine Est GFR ( Amer) Est GFR (Non-Af Amer) POC Glucose (mg/dL) 266 H 249 H Random Glucose Lactic Acid Calcium Phosphorus Magnesium Total Bilirubin AST ALT Alkaline Phosphatase Total Protein Albumin Globulin Albumin/Globulin Ratio Venous Blood Potassium Urine Color Yellow Urine Clarity Turbid Urine pH 6.0 Ur Specific [place] 1.024 Urine Protein 100 Urine Glucose (UA) >=500 Urine Ketones 80 Urine Blood Small Urine Nitrate Negative Urine Bilirubin Negative Urine Urobilinogen 0.2-1.0 Ur Leukocyte Esterase Large Urine RBC (Auto) 7 H Urine WBC Clumps (Auto) Rare H Urine Microscopic WBC 819 H Ur Squamous Epith Cells 2 Urine Bacteria Occ H 12/02/18 12/02/18 12/03/18 21:32 21:47 00:02 WBC RBC Hgb Hct MCV MCH MCHC RDW Plt Count MPV Neut % (Auto) Lymph % (Auto) [place] % (Auto) Eos % (Auto) Baso % (Auto) Neut # (Auto) Lymph # (Auto) [place] # (Auto) Eos # (Auto) Baso # (Auto) Neutrophils % (Manual) Band Neutrophils % Lymphocytes % (Manual) Monocytes % (Manual) Basophils % (Manual) Platelet Estimate PT INR APTT pO2 29 L VBG pH 7.28 L VBG pCO2 36 L VBG HCO3 16.5 VBG Total CO2 18.0 L VBG O2 Sat (Calc) 59.8 VBG Base Excess -9.0 L VBG Potassium 4.2 Glucose 260 H Lactate 1.8 FiO2 21.0 Blood Gas Comments Crit Value Called To Crit Value Called By Crit Value Read Back Blood Gas Notified Time Sodium 130.0 L Potassium Chloride 98.0 Carbon Dioxide Anion Gap BUN Creatinine Est GFR ( Amer) Est GFR (Non-Af Amer) POC Glucose (mg/dL) 236 H 275 H Random Glucose Lactic Acid Calcium Phosphorus Magnesium Total Bilirubin AST ALT Alkaline Phosphatase Total Protein Albumin Globulin Albumin/Globulin Ratio Venous Blood Potassium 4.2 Urine Color Urine Clarity Urine pH Ur Specific [place] Urine Protein Urine Glucose (UA) Urine Ketones Urine Blood Urine Nitrate Urine Bilirubin Urine Urobilinogen Ur Leukocyte Esterase Urine RBC (Auto) Urine WBC Clumps (Auto) Urine Microscopic WBC Ur Squamous Epith Cells Urine Bacteria 12/03/18 12/03/18 12/03/18 01:02 01:30 01:59 WBC RBC Hgb Hct MCV MCH MCHC RDW Plt Count MPV Neut % (Auto) Lymph % (Auto) [place] % (Auto) Eos % (Auto) Baso % (Auto) Neut # (Auto) Lymph # (Auto) [place] # (Auto) Eos # (Auto) Baso # (Auto) Neutrophils % (Manual) Band Neutrophils % Lymphocytes % (Manual) Monocytes % (Manual) Basophils % (Manual) Platelet Estimate PT INR APTT pO2 VBG pH VBG pCO2 VBG HCO3 VBG Total CO2 VBG O2 Sat (Calc) VBG Base Excess VBG Potassium Glucose Lactate FiO2 Blood Gas Comments Crit Value Called To Crit Value Called By Crit Value Read Back Blood Gas Notified Time Sodium 132 Potassium 3.8 Chloride 102 Carbon Dioxide 17 L Anion Gap 17 BUN 42 H Creatinine 1.9 H Est GFR ( Amer) 49 Est GFR (Non-Af Amer) 40 POC Glucose (mg/dL) 256 H 242 H Random Glucose 241 H Lactic Acid Calcium 9.2 Phosphorus 2.8 Magnesium 2.1 Total Bilirubin AST ALT Alkaline Phosphatase Total Protein Albumin Globulin Albumin/Globulin Ratio Venous Blood Potassium Urine Color Urine Clarity Urine pH Ur Specific [place] Urine Protein Urine Glucose (UA) Urine Ketones Urine Blood Urine Nitrate Urine Bilirubin Urine Urobilinogen Ur Leukocyte Esterase Urine RBC (Auto) Urine WBC Clumps (Auto) Urine Microscopic WBC Ur Squamous Epith Cells Urine Bacteria 12/03/18 12/03/18 12/03/18 03:03 03:57 04:10 WBC RBC Hgb Hct MCV MCH MCHC RDW Plt Count MPV Neut % (Auto) Lymph % (Auto) [place] % (Auto) Eos % (Auto) Baso % (Auto) Neut # (Auto) Lymph # (Auto) [place] # (Auto) Eos # (Auto) Baso # (Auto) Neutrophils % (Manual) Band Neutrophils % Lymphocytes % (Manual) Monocytes % (Manual) Basophils % (Manual) Platelet Estimate PT INR APTT pO2 VBG pH VBG pCO2 VBG HCO3 VBG Total CO2 VBG O2 Sat (Calc) VBG Base Excess VBG Potassium Glucose Lactate FiO2 Blood Gas Comments Crit Value Called To Crit Value Called By Crit Value Read Back Blood Gas Notified Time Sodium Potassium Chloride Carbon Dioxide Anion Gap BUN Creatinine Est GFR ( Amer) Est GFR (Non-Af Amer) POC Glucose (mg/dL) 243 H 246 H Random Glucose Lactic Acid 1.5 Calcium Phosphorus Magnesium Total Bilirubin AST ALT Alkaline Phosphatase Total Protein Albumin Globulin Albumin/Globulin Ratio Venous Blood Potassium Urine Color Urine Clarity Urine pH Ur Specific [place] Urine Protein Urine Glucose (UA) Urine Ketones Urine Blood Urine Nitrate Urine Bilirubin Urine Urobilinogen Ur Leukocyte Esterase Urine RBC (Auto) Urine WBC Clumps (Auto) Urine Microscopic WBC Ur Squamous Epith Cells Urine Bacteria 12/03/18 12/03/18 12/03/18 04:15 04:15 05:12 WBC 13.4 H RBC 5.01 Hgb 13.7 Hct 42.2 MCV 84.3 MCH 27.4 MCHC 32.5 L RDW 12.8 Plt Count 204 MPV 8.7 Neut % (Auto) 85.4 H Lymph % (Auto) 1.7 L [place] % (Auto) 8.7 Eos % (Auto) 3.9 Baso % (Auto) 0.3 Neut # (Auto) 11.4 H Lymph # (Auto) 0.2 L [place] # (Auto) 1.2 H Eos # (Auto) 0.5 Baso # (Auto) 0.0 Neutrophils % (Manual) Band Neutrophils % Lymphocytes % (Manual) Monocytes % (Manual) Basophils % (Manual) Platelet Estimate PT INR APTT pO2 VBG pH VBG pCO2 VBG HCO3 VBG Total CO2 VBG O2 Sat (Calc) VBG Base Excess VBG Potassium Glucose Lactate FiO2 Blood Gas Comments Crit Value Called To Crit Value Called By Crit Value Read Back Blood Gas Notified Time Sodium 133 Potassium 3.7 Chloride 103 Carbon Dioxide 18 L Anion Gap 16 BUN 41 H Creatinine 1.8 H Est GFR ( Amer) 52 Est GFR (Non-Af Amer) 43 POC Glucose (mg/dL) 250 H Random Glucose 231 H Lactic Acid Calcium 9.4 Phosphorus 2.0 L Magnesium 2.1 Total Bilirubin 0.4 AST 21 ALT 24 Alkaline Phosphatase 120 Total Protein 6.3 Albumin 3.3 L Globulin 3.0 Albumin/Globulin Ratio 1.1 Venous Blood Potassium Urine Color Urine Clarity Urine pH Ur Specific [place] Urine Protein Urine Glucose (UA) Urine Ketones Urine Blood Urine Nitrate Urine Bilirubin Urine Urobilinogen Ur Leukocyte Esterase Urine RBC (Auto) Urine WBC Clumps (Auto) Urine Microscopic WBC Ur Squamous Epith Cells Urine Bacteria 12/03/18 12/03/18 06:11 07:02 WBC RBC Hgb Hct MCV MCH MCHC RDW Plt Count MPV Neut % (Auto) Lymph % (Auto) [place] % (Auto) Eos % (Auto) Baso % (Auto) Neut # (Auto) Lymph # (Auto) [place] # (Auto) Eos # (Auto) Baso # (Auto) Neutrophils % (Manual) Band Neutrophils % Lymphocytes % (Manual) Monocytes % (Manual) Basophils % (Manual) Platelet Estimate PT INR APTT pO2 VBG pH VBG pCO2 VBG HCO3 VBG Total CO2 VBG O2 Sat (Calc) VBG Base Excess VBG Potassium Glucose Lactate FiO2 Blood Gas Comments Crit Value Called To Crit Value Called By Crit Value Read Back Blood Gas Notified Time Sodium Potassium Chloride Carbon Dioxide Anion Gap BUN Creatinine Est GFR ( Amer) Est GFR (Non-Af Amer) POC Glucose (mg/dL) 237 H 254 H Random Glucose Lactic Acid Calcium Phosphorus Magnesium Total Bilirubin AST ALT Alkaline Phosphatase Total Protein Albumin Globulin Albumin/Globulin Ratio Venous Blood Potassium Urine Color Urine Clarity Urine pH Ur Specific [place] Urine Protein Urine Glucose (UA) Urine Ketones Urine Blood Urine Nitrate Urine Bilirubin Urine Urobilinogen Ur Leukocyte Esterase Urine RBC (Auto) Urine WBC Clumps (Auto) Urine Microscopic WBC Ur Squamous Epith Cells Urine Bacteria Microbiology 12/02/18 16:50 Buttock Gram Stain - Final Accession No. : [id number] Patient Name / ID : [facility] / [id number] Exam Date : 12/02/2018 17:51:23 ( Approved ) Study Comment : Sex / Age : M / 38Y Creator : Andrei Devi MD Dictator : Andrei Devi MD Director Of Academic : Raw Sampler : Andrei Devi MD Approver2 : Report Date : 12/02/2018 18:40:25 My Comment : Date of service: 12/02/2018 PROCEDURE: CT pelvis HISTORY: r/o abscess of left buttock COMPARISON: Not available TECHNIQUE: 2.5 mm contiguous axial sections were acquired through the pelvis. Sagittal and coronal images were reformatted from the axial scan. Contrast administered: None Total exam DLP: 926.23 mGy-cm This CT exam was performed using 1 or more of the following dose reduction techniques: Automated exposure control, adjustment of the mA and/or kV according to patient size, and/or use of iterative reconstruction technique. FINDINGS: In the left gluteal subcutaneous soft tissues, there is heterogeneous increased attenuation. There is thickening of the overlying skin. There is some confluent density without jamie fluid collection. Likely phlegmon within the generalized picture of cellulitis. This phlegmon demonstrate mild mass effect upon the left gluteus renzo muscle. There is no evidence of myositis. No evidence of abscess or cellulitis elsewhere. There is a transplant kidney in the right iliac fossa. No hydronephrosis. The urinary bladder is unremarkable. Normal prostate. Visualized bowel loops are unremarkable. IMPRESSION: Left gluteal cellulitis with probable phlegmon. No evidence of jamie abscess. Assessment & Plan (1) Cellulitis and abscess of buttock Status: Acute (2) Severe sepsis Status: Acute - Assessment and Plan (Free Text) Assessment: A/P- 38 year old male with pmh of renal transplant on immune suppressant meds admitted with left buttock abscess. s/p I and D with packing in place. had high lactate and leukocytosis and fever on admission. today leukocytosis trending down. wound cx- pending PLan- continue with IV vanco and meropenem pending wound cx result. dose renally. keep vacno trough <15. wound care as per surgical team. all labs and imaging and chart notes reviewed.. case d/w [employer] . all above also d/w patient and his questions were answered. Critical Care time spent 60 minutes.
--- NOTE | 2018-12-03 16:17 | CP.PCM.HP ---
Past Patient History - Past Social History Smoking Status: Never Smoked - CARDIAC Hx Cardiac Disorders: No - PULMONARY Hx Respiratory Disorders: No - NEUROLOGICAL Hx Neurological Disorder: No - HEENT Hx HEENT Problems: No - RENAL Other/Comment: Kidney transplant - ENDOCRINE/METABOLIC Hx Endocrine Disorders: Yes Hx Diabetes Mellitus Type 2: Yes - MUSCULOSKELETAL/RHEUMATOLOGICAL Hx Falls: No - PSYCHIATRIC Hx Substance Use: No - SURGICAL HISTORY Hx Kidney Transplant: Yes - ANESTHESIA Hx Anesthesia: Yes Meds Allergies/Adverse Reactions: Allergies Allergy/AdvReac Type Severity Reaction Status Date / Time No Known Allergies Allergy Verified 12/02/18 14:03 Results - Vital Signs Recent Vital Signs: Last Vital Signs Temp 98.5 F 12/03/18 15:16 Pulse 89 12/03/18 15:16 Resp 20 12/03/18 15:16 BP 133/81 12/03/18 14:00 Pulse Ox 96 12/03/18 15:16 - Labs Result Diagrams: 12/03/18 04:15 12/03/18 04:15 Labs: Laboratory Results - last 24 hr 12/02/18 12/02/18 12/02/18 14:30 16:21 18:09 WBC RBC Hgb Hct MCV MCH MCHC RDW Plt Count MPV Neut % (Auto) Lymph % (Auto) [place] % (Auto) Eos % (Auto) Baso % (Auto) Neut # (Auto) Lymph # (Auto) [place] # (Auto) Eos # (Auto) Baso # (Auto) Neutrophils % (Manual) 76 H Band Neutrophils % 4 H Lymphocytes % (Manual) 8 L Monocytes % (Manual) 11 H Basophils % (Manual) 1 Platelet Estimate Normal pO2 VBG pH VBG pCO2 VBG HCO3 VBG Total CO2 VBG O2 Sat (Calc) VBG Base Excess VBG Potassium Sodium Chloride Glucose Lactate FiO2 Potassium Carbon Dioxide Anion Gap BUN Creatinine Est GFR ( Amer) Est GFR (Non-Af Amer) POC Glucose (mg/dL) 462 H* 393 H Random Glucose Lactic Acid Calcium Phosphorus Magnesium Total Bilirubin AST ALT Alkaline Phosphatase Total Protein Albumin Globulin Albumin/Globulin Ratio Venous Blood Potassium Urine Color Urine Clarity Urine pH Ur Specific [place] Urine Protein Urine Glucose (UA) Urine Ketones Urine Blood Urine Nitrate Urine Bilirubin Urine Urobilinogen Ur Leukocyte Esterase Urine RBC (Auto) Urine WBC Clumps (Auto) Urine Microscopic WBC Ur Squamous Epith Cells Urine Bacteria 0412/02/18 12/02/18 19:11 20:40 20:43 WBC RBC Hgb Hct MCV MCH MCHC RDW Plt Count MPV Neut % (Auto) Lymph % (Auto) [place] % (Auto) Eos % (Auto) Baso % (Auto) Neut # (Auto) Lymph # (Auto) [place] # (Auto) Eos # (Auto) Baso # (Auto) Neutrophils % (Manual) Band Neutrophils % Lymphocytes % (Manual) Monocytes % (Manual) Basophils % (Manual) Platelet Estimate pO2 VBG pH VBG pCO2 VBG HCO3 VBG Total CO2 VBG O2 Sat (Calc) VBG Base Excess VBG Potassium Sodium Chloride Glucose Lactate FiO2 Potassium Carbon Dioxide Anion Gap BUN Creatinine Est GFR ( Amer) Est GFR (Non-Af Amer) POC Glucose (mg/dL) 266 H 249 H Random Glucose Lactic Acid Calcium Phosphorus Magnesium Total Bilirubin AST ALT Alkaline Phosphatase Total Protein Albumin Globulin Albumin/Globulin Ratio Venous Blood Potassium Urine Color Yellow Urine Clarity Turbid Urine pH 6.0 Ur Specific [place] 1.024 Urine Protein 100 Urine Glucose (UA) >=500 Urine Ketones 80 Urine Blood Small Urine Nitrate Negative Urine Bilirubin Negative Urine Urobilinogen 0.2-1.0 Ur Leukocyte Esterase Large Urine RBC (Auto) 7 H Urine WBC Clumps (Auto) Rare H Urine Microscopic WBC 819 H Ur Squamous Epith Cells 2 Urine Bacteria Occ H 12/02/18 12/02/18 12/03/18 21:32 21:47 00:02 WBC RBC Hgb Hct MCV MCH MCHC RDW Plt Count MPV Neut % (Auto) Lymph % (Auto) [place] % (Auto) Eos % (Auto) Baso % (Auto) Neut # (Auto) Lymph # (Auto) [place] # (Auto) Eos # (Auto) Baso # (Auto) Neutrophils % (Manual) Band Neutrophils % Lymphocytes % (Manual) Monocytes % (Manual) Basophils % (Manual) Platelet Estimate pO2 29 L VBG pH 7.28 L VBG pCO2 36 L VBG HCO3 16.5 VBG Total CO2 18.0 L VBG O2 Sat (Calc) 59.8 VBG Base Excess -9.0 L VBG Potassium 4.2 Sodium 130.0 L Chloride 98.0 Glucose 260 H Lactate 1.8 FiO2 21.0 Potassium Carbon Dioxide Anion Gap BUN Creatinine Est GFR ( Amer) Est GFR (Non-Af Amer) POC Glucose (mg/dL) 236 H 275 H Random Glucose Lactic Acid Calcium Phosphorus Magnesium Total Bilirubin AST ALT Alkaline Phosphatase Total Protein Albumin Globulin Albumin/Globulin Ratio Venous Blood Potassium 4.2 Urine Color Urine Clarity Urine pH Ur Specific [place] Urine Protein Urine Glucose (UA) Urine Ketones Urine Blood Urine Nitrate Urine Bilirubin Urine Urobilinogen Ur Leukocyte Esterase Urine RBC (Auto) Urine WBC Clumps (Auto) Urine Microscopic WBC Ur Squamous Epith Cells Urine Bacteria 12/03/18 12/03/18 12/03/18 01:02 01:30 01:59 WBC RBC Hgb Hct MCV MCH MCHC RDW Plt Count MPV Neut % (Auto) Lymph % (Auto) [place] % (Auto) Eos % (Auto) Baso % (Auto) Neut # (Auto) Lymph # (Auto) [place] # (Auto) Eos # (Auto) Baso # (Auto) Neutrophils % (Manual) Band Neutrophils % Lymphocytes % (Manual) Monocytes % (Manual) Basophils % (Manual) Platelet Estimate pO2 VBG pH VBG pCO2 VBG HCO3 VBG Total CO2 VBG O2 Sat (Calc) VBG Base Excess VBG Potassium Sodium 132 Chloride 102 Glucose Lactate FiO2 Potassium 3.8 Carbon Dioxide 17 L Anion Gap 17 BUN 42 H Creatinine 1.9 H Est GFR ( Amer) 49 Est GFR (Non-Af Amer) 40 POC Glucose (mg/dL) 256 H 242 H Random Glucose 241 H Lactic Acid Calcium 9.2 Phosphorus 2.8 Magnesium 2.1 Total Bilirubin AST ALT Alkaline Phosphatase Total Protein Albumin Globulin Albumin/Globulin Ratio Venous Blood Potassium Urine Color Urine Clarity Urine pH Ur Specific [place] Urine Protein Urine Glucose (UA) Urine Ketones Urine Blood Urine Nitrate Urine Bilirubin Urine Urobilinogen Ur Leukocyte Esterase Urine RBC (Auto) Urine WBC Clumps (Auto) Urine Microscopic WBC Ur Squamous Epith Cells Urine Bacteria 12/03/18 12/03/18 12/03/18 03:03 03:57 04:10 WBC RBC Hgb Hct MCV MCH MCHC RDW Plt Count MPV Neut % (Auto) Lymph % (Auto) [place] % (Auto) Eos % (Auto) Baso % (Auto) Neut # (Auto) Lymph # (Auto) [place] # (Auto) Eos # (Auto) Baso # (Auto) Neutrophils % (Manual) Band Neutrophils % Lymphocytes % (Manual) Monocytes % (Manual) Basophils % (Manual) Platelet Estimate pO2 VBG pH VBG pCO2 VBG HCO3 VBG Total CO2 VBG O2 Sat (Calc) VBG Base Excess VBG Potassium Sodium Chloride Glucose Lactate FiO2 Potassium Carbon Dioxide Anion Gap BUN Creatinine Est GFR ( Amer) Est GFR (Non-Af Amer) POC Glucose (mg/dL) 243 H 246 H Random Glucose Lactic Acid 1.5 Calcium Phosphorus Magnesium Total Bilirubin AST ALT Alkaline Phosphatase Total Protein Albumin Globulin Albumin/Globulin Ratio Venous Blood Potassium Urine Color Urine Clarity Urine pH Ur Specific [place] Urine Protein Urine Glucose (UA) Urine Ketones Urine Blood Urine Nitrate Urine Bilirubin Urine Urobilinogen Ur Leukocyte Esterase Urine RBC (Auto) Urine WBC Clumps (Auto) Urine Microscopic WBC Ur Squamous Epith Cells Urine Bacteria 12/03/18 12/03/18 12/03/18 04:15 04:15 05:12 WBC 13.4 H RBC 5.01 Hgb 13.7 Hct 42.2 MCV 84.3 MCH 27.4 MCHC 32.5 L RDW 12.8 Plt Count 204 MPV 8.7 Neut % (Auto) 85.4 H Lymph % (Auto) 1.7 L [place] % (Auto) 8.7 Eos % (Auto) 3.9 Baso % (Auto) 0.3 Neut # (Auto) 11.4 H Lymph # (Auto) 0.2 L [place] # (Auto) 1.2 H Eos # (Auto) 0.5 Baso # (Auto) 0.0 Neutrophils % (Manual) Band Neutrophils % Lymphocytes % (Manual) Monocytes % (Manual) Basophils % (Manual) Platelet Estimate pO2 VBG pH VBG pCO2 VBG HCO3 VBG Total CO2 VBG O2 Sat (Calc) VBG Base Excess VBG Potassium Sodium 133 Chloride 103 Glucose Lactate FiO2 Potassium 3.7 Carbon Dioxide 18 L Anion Gap 16 BUN 41 H Creatinine 1.8 H Est GFR ( Amer) 52 Est GFR (Non-Af Amer) 43 POC Glucose (mg/dL) 250 H Random Glucose 231 H Lactic Acid Calcium 9.4 Phosphorus 2.0 L Magnesium 2.1 Total Bilirubin 0.4 AST 21 ALT 24 Alkaline Phosphatase 120 Total Protein 6.3 Albumin 3.3 L Globulin 3.0 Albumin/Globulin Ratio 1.1 Venous Blood Potassium Urine Color Urine Clarity Urine pH Ur Specific [place] Urine Protein Urine Glucose (UA) Urine Ketones Urine Blood Urine Nitrate Urine Bilirubin Urine Urobilinogen Ur Leukocyte Esterase Urine RBC (Auto) Urine WBC Clumps (Auto) Urine Microscopic WBC Ur Squamous Epith Cells Urine Bacteria 12/03/18 12/03/18 06:11 07:02 WBC RBC Hgb Hct MCV MCH MCHC RDW Plt Count MPV Neut % (Auto) Lymph % (Auto) [place] % (Auto) Eos % (Auto) Baso % (Auto) Neut # (Auto) Lymph # (Auto) [place] # (Auto) Eos # (Auto) Baso # (Auto) Neutrophils % (Manual) Band Neutrophils % Lymphocytes % (Manual) Monocytes % (Manual) Basophils % (Manual) Platelet Estimate pO2 VBG pH VBG pCO2 VBG HCO3 VBG Total CO2 VBG O2 Sat (Calc) VBG Base Excess VBG Potassium Sodium Chloride Glucose Lactate FiO2 Potassium Carbon Dioxide Anion Gap BUN Creatinine Est GFR ( Amer) Est GFR (Non-Af Amer) POC Glucose (mg/dL) 237 H 254 H Random Glucose Lactic Acid Calcium Phosphorus Magnesium Total Bilirubin AST ALT Alkaline Phosphatase Total Protein Albumin Globulin Albumin/Globulin Ratio Venous Blood Potassium Urine Color Urine Clarity Urine pH Ur Specific [place] Urine Protein Urine Glucose (UA) Urine Ketones Urine Blood Urine Nitrate Urine Bilirubin Urine Urobilinogen Ur Leukocyte Esterase Urine RBC (Auto) Urine WBC Clumps (Auto) Urine Microscopic WBC Ur Squamous Epith Cells Urine Bacteria
[2018-12-03 18:38] LABS: BLOOD UREA NITROGEN 32 mg/dl (9-20); CALCIUM 9.4 mg/dL (8.4-10.2); GFR NON-AFRICAN AMERICAN 57
[2018-12-03] MEDS: Sodium Chloride 0.9% 1,000 ML IV SCH (19:00)
[2018-12-03] MEDS: Insulin Detemir 100 Units/ml Inj SC SCH (23:46)
[2018-12-04] MEDS: Meropenem 500 MG in Sodium Chloride 0.9% 100 ML IVPB SCH ×2 (00:04→08:50)
[2018-12-04] MEDS: Sodium Chloride 0.9% 1,000 ML IV SCH ×3 (02:22→16:38)
[2018-12-04 05:12] LABS: HEMOGLOBIN 12.7 g/dL (12.0-18.0); MEAN CELL VOLUME 82.7 fl (80.0-94.0); MEAN CORPUSCULAR HEMOGLOBIN 27.4 pg (27.0-31.0); MEAN CORPUSCULAR HGB CONC 33.2 g/dL (33.0-37.0); RBC 4.64 Mil/uL (4.40-5.90); RED CELL DISTRIBUTION WIDTH 12.7 % (11.5-14.5); WHITE BLOOD COUNT 8.8 K/uL (4.8-10.8)
[2018-12-04 05:21] LABS: BLOOD UREA NITROGEN 26 mg/dl (9-20); GFR NON-AFRICAN AMERICAN > 60
[2018-12-04] MEDS: Insulin Lispro (humaLOG) 100 Units/ml Inj SC SCH ×7 (07:20→21:04)
[2018-12-04] MEDS ORDERED: Insulin Lispro (humaLOG) 100 Units/ml Inj SC SCH (07:30)
--- NOTE | 2018-12-04 07:59 | CP.CCUPN ---
CCU Subjective - Physician Review Subjective (Free Text): Uneventful overnight, off insulin drip, remains alert and awake, no recurrent fever spikes. BS levels averaging mid 200s. Less tachycardic, HR 80-90s sinus, RR 16, 100% on RA. After additional volume expansion yesterday, fluid balance now +4.3L, otherwise IVFs at 150 ml/hr. ROS: No other pertinent negs or positives on 10+ system review PMSFH: All other Nursing and physician documentation reviewed to date; no new pertinent info noted relevant to current medical problems. EXAM- HEENT: no icterus, no gaze preference NECK: No JVD visible, supple, carotids equal upstroke bilat/no bruit CHEST: clear bilat BS, no wheezes audible bilaterally. HEART: regular, tachy S1S2, no rubs or murmurs noted ABD: soft, nontender, no guarding, no organomegaly, BS hypoactive. EXT: no leg edema, no calf tenderness or palpable cords, distal pulses intact and symmetrical. Dressing intact over L buttock. NEURO: no gross focal deficits. SKIN: no rashes, warm and dry LABS: WBC= 8.8 HGB= 12.7 PLTs= 207K Na= 136 K= 4.0 CL= 108 HCO3= 19 BUN/Cr= 26/1.3 BS= 239 IMPRESSION / MAJOR PROBLEMS NOW: 1. DKA 2. Left Gluteal cellulitis with Phlegmon/ abscess 3. Azotemia / Dehydration 4. h/o Renal Trsp for Polycystic Renal Disease on Immunosuppression PLAN: 1. Ongoing IVF hydration with NSS, Levemir started as IV insulin drip stopped, tolerating PO diet. Serum bicarb still below 20, BUN / Cr levels improved. Would get HGBA1c. 2. Empiric Abx coverage, s/p I& D, f/u cultures. 3. Continue PO Prednisone, Mycophen, Tacrolimus. 4. Stable for regular med/surg bed.
--- NOTE | 2018-12-04 08:47 | CP.PCM.PN ---
Subjective - Date & Time of Evaluation Date of Evaluation: 12/04/18 Time of Evaluation: 08:40 - Subjective Subjective: General Surgery: [place] patient feeling much lass pain this am. denies n/v, f/c. packing changed at bedside 5cc purulent fluid expressed. dressing replaced Objective - Vital Signs/Intake and Output Vital Signs (last 24 hours): Temp Pulse Resp BP Pulse Ox 97.3 F L 66 17 124/81 97 12/04/18 08:00 12/04/18 08:00 12/04/18 08:00 12/04/18 06:00 12/04/18 08:00 Intake and Output: 12/04/18 12/04/18 06:59 18:59 Intake Total 1904 Output Total 700 Balance 1204 - Medications Medications: Current Medications Acetaminophen (Tylenol 325mg Tab) 975 mg PO Q6 PRN PRN Reason: Pain, moderate (4-7) Last Admin: 12/04/18 02:24 Dose: 975 mg Dextrose (Dextrose 50% Inj) 0 ml IV STAT PRN; Protocol PRN Reason: Hypoglycemia Protocol Dextrose (Glutose 15) 0 gm PO ONCE PRN; Protocol PRN Reason: Hypoglycemia Protocol Enoxaparin Sodium (Lovenox) 40 mg SC DAILY [facility]; Protocol Glucagon (Glucagen Diagnostic Kit) 0 mg IM STAT PRN; Protocol PRN Reason: Hypoglycemia Protocol Home Med (Mycophenolic Acid Dr [Myfortic Dr]) 720 mg PO Q12 [facility] Last Admin: 12/03/18 21:17 Dose: 720 mg Meropenem 500 mg/ Sodium (Chloride) 100 mls @ 100 mls/hr IVPB Q8 [facility]; Protocol Last Admin: 12/04/18 00:04 Dose: 100 mls/hr Vancomycin HCl 500 mg/ Sodium (Chloride) 100 mls @ 100 mls/hr IVPB Q12 [facility]; Protocol Last Admin: 12/03/18 20:11 Dose: 100 mls/hr Sodium Chloride (Sodium Chloride 0.9%) 1,000 mls @ 150 mls/hr IV .Q6H40M [facility] Stop: 12/04/18 18:52 Last Admin: 12/04/18 02:22 Dose: 150 mls/hr Insulin Detemir (Levemir) 20 units SC [facility] Last Admin: 12/03/18 23:46 Dose: 20 units Insulin Human Lispro (Humalog) 8 units SC AC [facility] Insulin Human Lispro (Humalog) 0 units SC ACHS [facility]; Protocol Last Admin: 12/04/18 07:20 Dose: Not Given Prednisone (Prednisone Tab) 5 mg PO DAILY [facility] Last Admin: 12/03/18 09:23 Dose: 5 mg Prednisone (Prednisone Tab) 2.5 mg PO QPM@2100 [facility] Last Admin: 12/03/18 20:18 Dose: 2.5 mg Sitagliptin Phosphate (Januvia) 100 mg PO DAILY [facility] Last Admin: 12/03/18 09:19 Dose: 100 mg Tacrolimus (Prograf Cap) 5 mg PO Q12 [facility] Last Admin: 12/03/18 20:20 Dose: 5 mg - Labs Labs: 12/04/18 04:31 12/04/18 04:31 PT 12.5 Seconds (9.8-13.1) 12/02/18 14:30 INR 1.1 12/02/18 14:30 APTT 32.7 Seconds (25.6-37.1) 12/02/18 14:30 - Constitutional Appears: Well, Non-toxic, No Acute Distress - Head Exam Head Exam: ATRAUMATIC, NORMOCEPHALIC - Eye Exam Eye Exam: EOMI - ENT Exam ENT Exam: Mucous Membranes Moist - Respiratory Exam Respiratory Exam: NORMAL BREATHING PATTERN - Cardiovascular Exam Cardiovascular Exam: REGULAR RHYTHM - GI/Abdominal Exam GI & Abdominal Exam: Soft. absent: Guarding, Tenderness - Back Exam Additional comments: 1.5x1.5cm opening on left gluteal area s/p I&D with surrounding abrasion and purulent fluid expressable, packing changed - Neurological Exam Neurological Exam: Alert, Awake, Oriented x3 - Psychiatric Exam Psychiatric exam: Normal Affect, Normal Mood - Skin Skin Exam: Dry, Warm Additional comments: wound on left gluteal cheek as above with minimal surrounding erythema Assessment and Plan - Assessment and Plan (Free Text) Assessment: 38 M with left gluteal abscess, S/p bedside I&D POD 1 Plan: continue abx PO abx per culture results -continue packing changes - pain control - further recs per Dr. Keanu Blair, PGY 1
[2018-12-04] MEDS: Enoxaparin 40 mg Syringe SC SCH (08:49)
[2018-12-04] MEDS: MYCOPHENOLIC ACID PO SCH ×2 (08:51→20:20)
[2018-12-04] MEDS: Insulin Detemir 100 Units/ml Inj SC SCH (21:00)
--- NOTE | 2018-12-05 01:39 | PN ---
DATE: 12/04/2018 LOCATION: ICU Room 423. SUBJECTIVE: This is a 38-year-old male with recent uncontrolled type 1 insulin-dependent diabetes, presenting here with diabetic ketoacidosis and dehydration and is improved clinically and hemodynamically as noted thereof. His glycemic levels have improved accordingly and his anion gap has closed in with improvement of his CO2 level biochemically as noted. He has been taken off his insulin drip overnight as noted. He has also ongoing IV antibiotic management for left gluteal abscess with associated fever and generalized body weakness as noted. His glycemic levels today have ranged from 237 to 254 mg/dL. His hemoglobin A1c is 11.8% which is extremely elevated and indicative of suboptimal metabolic control of his diabetic condition as noted. His chemistry showed a BUN of 26, sodium 136, potassium 4, chloride 108, CO2 of 19, glucose 259 and creatinine is 1.3. ASSESSMENT: This is a 38-year-old male with uncontrolled and decompensated type 2 insulin-requiring diabetes, presenting here with diabetic ketoacidosis and dehydration with supervening left gluteal abscess and receiving intravenous antibiotic management as given. Moreover, he also has had a previous renal transplant and has been on a long-term steroid replacement therapy contributing to the extremes of glycemic fluctuations as noted thereof. PLAN OF MANAGEMENT: We will modify once again his basal and bolus insulin regimen and increase the Levemir to 26 units subcu at bedtime daily to start tonight. We will also titrate his prandial insulin to a higher dosing of Humalog given as 12 units t.i.d. before meals as ordered. We will continue the low-dose correction scale using Humalog insulin at a very low-dose algorithm to obviate hypoglycemia and detailed orders have been given. We will obtain serial chemistries and supplement accordingly as needed. We will follow. Mary Jane Angelo MD
[2018-12-05] MEDS ORDERED: Sodium Chloride 0.9% 1,000 ML IV SCH (02:00)
[2018-12-05 05:39] VITALS: BP 130/92
[2018-12-05] MEDS: Insulin Lispro (humaLOG) 100 Units/ml Inj SC SCH ×4 (06:36→12:32)
--- NOTE | 2018-12-05 07:48 | CP.PCM.PN ---
Subjective - Date & Time of Evaluation Date of Evaluation: 12/05/18 Time of Evaluation: 07:48 - Subjective Subjective: General Surgery Progress Note: Dr. [place] Patient seen and examined this am POD#1 bedside I&D. Patient reports minimal pain this morning. Denies nausea/vomiting/fever/shortness of breath. Objective - Vital Signs/Intake and Output Vital Signs (last 24 hours): Temp Pulse Resp BP Pulse Ox 98.1 F 62 16 130/92 H 98 12/05/18 04:00 12/05/18 04:00 12/05/18 04:00 12/05/18 04:00 12/05/18 02:00 Intake and Output: 12/05/18 12/05/18 06:59 18:59 Intake Total 2400 Output Total 610 Balance 1790 - Medications Medications: Current Medications Acetaminophen (Tylenol 325mg Tab) 975 mg PO Q6 PRN PRN Reason: Pain, moderate (4-7) Last Admin: 12/04/18 22:33 Dose: 975 mg Dextrose (Dextrose 50% Inj) 0 ml IV STAT PRN; Protocol PRN Reason: Hypoglycemia Protocol Dextrose (Glutose 15) 0 gm PO ONCE PRN; Protocol PRN Reason: Hypoglycemia Protocol Enoxaparin Sodium (Lovenox) 40 mg SC DAILY [facility]; Protocol Last Admin: 12/04/18 08:49 Dose: 40 mg Glucagon (Glucagen Diagnostic Kit) 0 mg IM STAT PRN; Protocol PRN Reason: Hypoglycemia Protocol Home Med (Mycophenolic Acid Dr [Myfortic Dr]) 720 mg PO Q12 [facility] Last Admin: 12/04/18 20:20 Dose: 720 mg Vancomycin HCl 500 mg/ Sodium (Chloride) 100 mls @ 100 mls/hr IVPB Q12 [facility]; Protocol Last Admin: 12/04/18 20:18 Dose: 100 mls/hr Sodium Chloride (Sodium Chloride 0.9%) 1,000 mls @ 150 mls/hr IV .Q6H40M [facility] Stop: 12/05/18 08:39 Last Admin: 12/05/18 02:06 Dose: 150 mls/hr Insulin Detemir (Levemir) 26 units SC HS [facility] Insulin Human Lispro (Humalog) 0 units SC ACHS [facility]; Protocol Last Admin: 12/05/18 06:36 Dose: Not Given Insulin Human Lispro (Humalog) 12 units SC AC [facility] Prednisone (Prednisone Tab) 5 mg PO DAILY [facility] Last Admin: 12/04/18 08:52 Dose: 5 mg Prednisone (Prednisone Tab) 2.5 mg PO QPM@2100 [facility] Last Admin: 12/04/18 20:20 Dose: 2.5 mg Sitagliptin Phosphate (Januvia) 100 mg PO DAILY [facility] Last Admin: 12/04/18 08:49 Dose: 100 mg Tacrolimus (Prograf Cap) 5 mg PO Q12 [facility] Last Admin: 12/04/18 20:21 Dose: 5 mg - Labs Labs: 12/04/18 04:31 12/04/18 04:31 PT 12.5 Seconds (9.8-13.1) 12/02/18 14:30 INR 1.1 12/02/18 14:30 APTT 32.7 Seconds (25.6-37.1) 12/02/18 14:30 - Constitutional Appears: Non-toxic, No Acute Distress - Head Exam Head Exam: ATRAUMATIC, NORMOCEPHALIC - Eye Exam Eye Exam: Normal appearance - Cardiovascular Exam Cardiovascular Exam: REGULAR RHYTHM - GI/Abdominal Exam GI & Abdominal Exam: Soft - Extremities Exam Extremities Exam: Normal Capillary Refill. absent: Calf Tenderness - Back Exam Additional comments: 1.5x1.5cm opening on left gluteal area s/p I&D with surrounding abrasion - Neurological Exam Neurological Exam: Alert, Awake, Oriented x3 - Psychiatric Exam Psychiatric exam: Normal Affect, Normal Mood - Skin Skin Exam: Warm Assessment and Plan - Assessment and Plan (Free Text) Assessment: 38 year old male with left gluteal abscess, POD#2 bedside I&D Plan: - Consistent carbohydrate diet - Leukocytosis resolved - C/w IV abx - Wound cx; staph aureus - PO abx per ID recs - Packing changed today - Pain control - Further recs per Dr. Keanu Denney PGY 1
[2018-12-05 08:37] VITALS: RESP 14; O2SAT 100
[2018-12-05] MEDS: Enoxaparin 40 mg Syringe SC SCH (08:44)
[2018-12-05] MEDS: MYCOPHENOLIC ACID PO SCH (08:44)
--- NOTE | 2018-12-05 08:48 | CON ---
DATE: 12/03/2018 LOCATIONS: ICU, room 423. SUBJECTIVE: This is a 38-year-old male with known history of type 2 diabetes, on oral hypoglycemic therapy, presenting here with a left gluteal abscess and was found to have marked hyperglycemic accelerations and actually diabetic ketoacidosis, and is now being referred for diabetic evaluation and management. PAST MEDICAL HISTORY: As mentioned above, history of type 2 diabetes, currently only on Tradjenta taken as 5 mg once daily, history of hypertension and dyslipidemia, history of polycystic kidney disease and developed end-stage renal disease more than 6 years ago and received a renal transplant in 2012 as noted. MEDICATIONS: He is currently on antirejection drug maintenance therapy with prednisone also taken as 5 mg in the morning and 2.5 mg in the evening. FAMILY HISTORY: Positive for hypertension and heart disease. SOCIAL HISTORY: The patient has a supportive family. No known substance use. REVIEW OF SYSTEMS: As mentioned above. Admits to generalized body weakness with episodic bouts of dizziness and lightheadedness, worse on the day of admission. No chest pains or palpitations or PND. His oral intake has been variable with nausea, dyspepsia and vague upper abdominal pains. Also admits to marked polyuria, nocturia, and polydipsia. PHYSICAL EXAMINATION: GENERAL: This is an average-built male, in no apparent distress. VITAL SIGNS: Blood pressure 140/80, pulse of 70 beats per minute regular, temperature 98, respirations 20, height is 6 feet 3 inches, weight is 249 pounds. HEENT: Head is normocephalic. Eyes anicteric with pink conjunctivae. Funduscopy not possible at this time. Ears, nose and throat otherwise normal. NECK: Supple. Thyroid gland is normal in size. No carotid bruits or any cervical adenopathy. CARDIOPULMONARY: Adynamic precordium. S1, S2 is rapid and regular. LUNGS: Clear to auscultation. ABDOMEN: Flat, soft with positive bowel sounds. EXTREMITIES: No peripheral edema. Pulses are +2 bilaterally. LABORATORY DATA: His chemistries showed initially a BUN of 31, sodium 128, potassium 5, chloride 95, carbon dioxide is 10, glucose is 449 and creatinine is 1.9. His subsequent CO2 now is 20 as noted. ASSESSMENT: This is a 38-year-old male with uncontrolled and decompensated type 2 insulin-requiring diabetes, presenting with a left gluteal abscess and supervening diabetic ketoacidosis with marked hyperglycemic accelerations as noted thereof. PLAN OF MANAGEMENT: We will concur with the initial initiation of an insulin drip infusion in the ER and subsequently in the ICU as ordered because of the metabolic acidosis as noted. However, tonight, after vigorous IV hydration and intensive insulin therapy, the patient has now markedly improved with closure of the anion gap and supervening near-optimal metabolic profile on the insulin drip as noted and the latest CO2 is 20 as seen in the chemistries tonight. We will switch him over now to a more physiologic basal and bolus insulin drug combination to optimize metabolic control. We will modify the coverage scale to obviate hypoglycemia and detailed orders have been given. We will obtain serial chemistries and supplement accordingly as needed. We will initiate diabetic education and dietary instructions to include insulin self-administration and dietary evaluation for healthier food choices thereof. We will continue the vigorous IV hydration to fully replenish the volume depletion and the lost fluids and electrolytes from the increased osmotic diuresis thereof. We will follow and advise accordingly. Mary Jane Angelo MD
--- NOTE | 2018-12-05 09:49 | CP.PCM.PN ---
Subjective - Date & Time of Evaluation Date of Evaluation: 12/05/18 Time of Evaluation: 09:49 - Subjective Subjective: ID note- Patietn seen and examined today in ICU. denies any fever or chills. states he feels better and wants to go home. Off insulin drip. as per surgical team no need for any packing anymore and from surgical standpoint he is cleared to go home. Objective - Vital Signs/Intake and Output Vital Signs (last 24 hours): Temp Pulse Resp BP Pulse Ox 98.9 F 64 14 130/92 H 100 12/05/18 08:00 12/05/18 08:00 12/05/18 08:00 12/05/18 08:00 12/05/18 08:00 Intake and Output: 12/05/18 12/05/18 06:59 18:59 Intake Total 2400 100 Output Total 610 Balance 1790 100 - Medications Medications: Current Medications Acetaminophen (Tylenol 325mg Tab) 975 mg PO Q6 PRN PRN Reason: Pain, moderate (4-7) Last Admin: 12/04/18 22:33 Dose: 975 mg Dextrose (Dextrose 50% Inj) 0 ml IV STAT PRN; Protocol PRN Reason: Hypoglycemia Protocol Dextrose (Glutose 15) 0 gm PO ONCE PRN; Protocol PRN Reason: Hypoglycemia Protocol Enoxaparin Sodium (Lovenox) 40 mg SC DAILY [facility]; Protocol Last Admin: 12/05/18 08:44 Dose: 40 mg Glucagon (Glucagen Diagnostic Kit) 0 mg IM STAT PRN; Protocol PRN Reason: Hypoglycemia Protocol Home Med (Mycophenolic Acid Dr [Myfortic Dr]) 720 mg PO Q12 [facility] Last Admin: 12/05/18 08:44 Dose: 720 mg Vancomycin HCl 500 mg/ Sodium (Chloride) 100 mls @ 100 mls/hr IVPB Q12 [facility]; Protocol Last Admin: 12/05/18 08:46 Dose: 100 mls/hr Insulin Detemir (Levemir) 26 units SC HS ELIESER Insulin Human Lispro (Humalog) 0 units SC ACHS [facility]; Protocol Last Admin: 12/05/18 06:36 Dose: Not Given Insulin Human Lispro (Humalog) 12 units SC AC [facility] Last Admin: 12/05/18 08:41 Dose: 12 unit Prednisone (Prednisone Tab) 5 mg PO DAILY [facility] Last Admin: 12/05/18 08:45 Dose: 5 mg Prednisone (Prednisone Tab) 2.5 mg PO QPM@2100 [facility] Last Admin: 12/04/18 20:20 Dose: 2.5 mg Sitagliptin Phosphate (Januvia) 100 mg PO DAILY [facility] Last Admin: 12/05/18 08:44 Dose: 100 mg Tacrolimus (Prograf Cap) 5 mg PO Q12 [facility] Last Admin: 12/05/18 08:45 Dose: 5 mg - Labs Labs: - Additional Findings Additional findings: - Constitutional Appears: No Acute Distress - Head Exam Head Exam: ATRAUMATIC - Eye Exam Eye Exam: EOMI, PERRL - ENT Exam ENT Exam: Normal Oropharynx - Neck Exam Neck exam: Positive for: Full Rom - Respiratory Exam Respiratory Exam: Clear to Auscultation Bilateral, NORMAL BREATHING PATTERN - Cardiovascular Exam Cardiovascular Exam: RRR, +S1, +S2 - GI/Abdominal Exam GI & Abdominal Exam: Normal Bowel Sounds, Soft Additional comments: NT, ND - Rectal Exam Additional comments: left buttock region with 2 x 4 cm area with open wound with small packing in palce, erythema is much less, no malodor, much less discharge no tenderness - Extremities Exam Extremities exam: Positive for: normal inspection - Neurological Exam Neurological exam: Alert, Oriented x 3 Laboratory Results - last 72 hr 12/02/18 12/02/18 12/02/18 14:30 14:30 14:30 WBC 16.8 H RBC 5.43 Hgb 14.9 Hct 46.2 MCV 85.1 MCH 27.4 MCHC 32.2 L RDW 13.1 Plt Count 249 MPV 9.1 Neut % (Auto) 87.4 H Lymph % (Auto) 1.9 L Perry % (Auto) 10.3 H Eos % (Auto) 0.2 Baso % (Auto) 0.2 Neut # (Auto) 14.6 H Lymph # (Auto) 0.3 L Perry # (Auto) 1.7 H Eos # (Auto) 0.0 Baso # (Auto) 0.0 Neutrophils % (Manual) 76 H Band Neutrophils % 4 H Lymphocytes % (Manual) 8 L Monocytes % (Manual) 11 H Basophils % (Manual) 1 Platelet Estimate Normal PT 12.5 INR 1.1 APTT 32.7 pO2 VBG pH VBG pCO2 VBG HCO3 VBG Total CO2 VBG O2 Sat (Calc) VBG Base Excess VBG Potassium Glucose Lactate FiO2 Blood Gas Comments Crit Value Called To Crit Value Called By Crit Value Read Back Blood Gas Notified Time Sodium 128 L Potassium 5.0 Chloride 95 L Carbon Dioxide 10 L* Anion Gap 28 H BUN 31 H Creatinine 1.9 H Est GFR ( Amer) 49 Est GFR (Non-Af Amer) 40 POC Glucose (mg/dL) Random Glucose 449 H* Hemoglobin A1c Lactic Acid Calcium 9.9 Phosphorus Magnesium Total Bilirubin AST ALT Alkaline Phosphatase Total Protein Albumin Globulin Albumin/Globulin Ratio Venous Blood Potassium Urine Color Urine Clarity Urine pH Ur Specific Romayor Urine Protein Urine Glucose (UA) Urine Ketones Urine Blood Urine Nitrate Urine Bilirubin Urine Urobilinogen Ur Leukocyte Esterase Urine RBC (Auto) Urine WBC Clumps (Auto) Urine Microscopic WBC Ur Squamous Epith Cells Urine Bacteria Blood Type Blood Type Confirm Antibody Screen BBK History Checked 12/02/18 12/02/18 12/02/18 14:30 15:03 16:21 WBC RBC Hgb Hct MCV MCH MCHC RDW Plt Count MPV Neut % (Auto) Lymph % (Auto) Perry % (Auto) Eos % (Auto) Baso % (Auto) Neut # (Auto) Lymph # (Auto) Perry # (Auto) Eos # (Auto) Baso # (Auto) Neutrophils % (Manual) Band Neutrophils % Lymphocytes % (Manual) Monocytes % (Manual) Basophils % (Manual) Platelet Estimate PT INR APTT pO2 28 L VBG pH 7.23 L VBG pCO2 28 L VBG HCO3 12.2 VBG Total CO2 12.6 L VBG O2 Sat (Calc) 54.5 VBG Base Excess -14.3 L VBG Potassium 5.2 Glucose 470 H* Lactate 2.2 H FiO2 21.0 Blood Gas Comments Lac=2.2 Crit Value Called To brandi Brower Crit Value Called By 22 Crit Value Read Back Y Blood Gas Notified Time 1513 Sodium 127.0 L Potassium Chloride 89.0 L Carbon Dioxide Anion Gap BUN Creatinine Est GFR ( Amer) Est GFR (Non-Af Amer) POC Glucose (mg/dL) 462 H* Random Glucose Hemoglobin A1c Lactic Acid Calcium Phosphorus Magnesium Total Bilirubin AST ALT Alkaline Phosphatase Total Protein Albumin Globulin Albumin/Globulin Ratio Venous Blood Potassium 5.2 Urine Color Urine Clarity Urine pH Ur Specific Romayor Urine Protein Urine Glucose (UA) Urine Ketones Urine Blood Urine Nitrate Urine Bilirubin Urine Urobilinogen Ur Leukocyte Esterase Urine RBC (Auto) Urine WBC Clumps (Auto) Urine Microscopic WBC Ur Squamous Epith Cells Urine Bacteria Blood Type O POSITIVE Blood Type Confirm Antibody Screen Negative BBK History Checked No verified bt 12/02/18 12/02/18 12/02/18 18:09 19:11 20:40 WBC RBC Hgb Hct MCV MCH MCHC RDW Plt Count MPV Neut % (Auto) Lymph % (Auto) Perry % (Auto) Eos % (Auto) Baso % (Auto) Neut # (Auto) Lymph # (Auto) Perry # (Auto) Eos # (Auto) Baso # (Auto) Neutrophils % (Manual) Band Neutrophils % Lymphocytes % (Manual) Monocytes % (Manual) Basophils % (Manual) Platelet Estimate PT INR APTT pO2 VBG pH VBG pCO2 VBG HCO3 VBG Total CO2 VBG O2 Sat (Calc) VBG Base Excess VBG Potassium Glucose Lactate FiO2 Blood Gas Comments Crit Value Called To Crit Value Called By Crit Value Read Back Blood Gas Notified Time Sodium Potassium Chloride Carbon Dioxide Anion Gap BUN Creatinine Est GFR ( Amer) Est GFR (Non-Af Amer) POC Glucose (mg/dL) 393 H 266 H Random Glucose Hemoglobin A1c Lactic Acid Calcium Phosphorus Magnesium Total Bilirubin AST ALT Alkaline Phosphatase Total Protein Albumin Globulin Albumin/Globulin Ratio Venous Blood Potassium Urine Color Yellow Urine Clarity Turbid Urine pH 6.0 Ur Specific Romayor 1.024 Urine Protein 100 Urine Glucose (UA) >=500 Urine Ketones 80 Urine Blood Small Urine Nitrate Negative Urine Bilirubin Negative Urine Urobilinogen 0.2-1.0 Ur Leukocyte Esterase Large Urine RBC (Auto) 7 H Urine WBC Clumps (Auto) Rare H Urine Microscopic WBC 819 H Ur Squamous Epith Cells 2 Urine Bacteria Occ H Blood Type Blood Type Confirm Antibody Screen BBK History Checked 12/02/18 12/02/18 12/02/18 20:43 21:32 21:47 WBC RBC Hgb Hct MCV MCH MCHC RDW Plt Count MPV Neut % (Auto) Lymph % (Auto) Perry % (Auto) Eos % (Auto) Baso % (Auto) Neut # (Auto) Lymph # (Auto) Perry # (Auto) Eos # (Auto) Baso # (Auto) Neutrophils % (Manual) Band Neutrophils % Lymphocytes % (Manual) Monocytes % (Manual) Basophils % (Manual) Platelet Estimate PT INR APTT pO2 29 L VBG pH 7.28 L VBG pCO2 36 L VBG HCO3 16.5 VBG Total CO2 18.0 L VBG O2 Sat (Calc) 59.8 VBG Base Excess -9.0 L VBG Potassium 4.2 Glucose 260 H Lactate 1.8 FiO2 21.0 Blood Gas Comments Crit Value Called To Crit Value Called By Crit Value Read Back Blood Gas Notified Time Sodium 130.0 L Potassium Chloride 98.0 Carbon Dioxide Anion Gap BUN Creatinine Est GFR ( Amer) Est GFR (Non-Af Amer) POC Glucose (mg/dL) 249 H 236 H Random Glucose Hemoglobin A1c Lactic Acid Calcium Phosphorus Magnesium Total Bilirubin AST ALT Alkaline Phosphatase Total Protein Albumin Globulin Albumin/Globulin Ratio Venous Blood Potassium 4.2 Urine Color Urine Clarity Urine pH Ur Specific Romayor Urine Protein Urine Glucose (UA) Urine Ketones Urine Blood Urine Nitrate Urine Bilirubin Urine Urobilinogen Ur Leukocyte Esterase Urine RBC (Auto) Urine WBC Clumps (Auto) Urine Microscopic WBC Ur Squamous Epith Cells Urine Bacteria Blood Type Blood Type Confirm Antibody Screen BBK History Checked 12/03/18 12/03/18 12/03/18 00:02 01:02 01:30 WBC RBC Hgb Hct MCV MCH MCHC RDW Plt Count MPV Neut % (Auto) Lymph % (Auto) Perry % (Auto) Eos % (Auto) Baso % (Auto) Neut # (Auto) Lymph # (Auto) Perry # (Auto) Eos # (Auto) Baso # (Auto) Neutrophils % (Manual) Band Neutrophils % Lymphocytes % (Manual) Monocytes % (Manual) Basophils % (Manual) Platelet Estimate PT INR APTT pO2 VBG pH VBG pCO2 VBG HCO3 VBG Total CO2 VBG O2 Sat (Calc) VBG Base Excess VBG Potassium Glucose Lactate FiO2 Blood Gas Comments Crit Value Called To Crit Value Called By Crit Value Read Back Blood Gas Notified Time Sodium 132 Potassium 3.8 Chloride 102 Carbon Dioxide 17 L Anion Gap 17 BUN 42 H Creatinine 1.9 H Est GFR ( Amer) 49 Est GFR (Non-Af Amer) 40 POC Glucose (mg/dL) 275 H 256 H Random Glucose 241 H Hemoglobin A1c Lactic Acid Calcium 9.2 Phosphorus 2.8 Magnesium 2.1 Total Bilirubin AST ALT Alkaline Phosphatase Total Protein Albumin Globulin Albumin/Globulin Ratio Venous Blood Potassium Urine Color Urine Clarity Urine pH Ur Specific Romayor Urine Protein Urine Glucose (UA) Urine Ketones Urine Blood Urine Nitrate Urine Bilirubin Urine Urobilinogen Ur Leukocyte Esterase Urine RBC (Auto) Urine WBC Clumps (Auto) Urine Microscopic WBC Ur Squamous Epith Cells Urine Bacteria Blood Type Blood Type Confirm Antibody Screen BBK History Checked 12/03/18 12/03/18 12/03/18 01:59 03:03 03:57 WBC RBC Hgb Hct MCV MCH MCHC RDW Plt Count MPV Neut % (Auto) Lymph % (Auto) Perry % (Auto) Eos % (Auto) Baso % (Auto) Neut # (Auto) Lymph # (Auto) Perry # (Auto) Eos # (Auto) Baso # (Auto) Neutrophils % (Manual) Band Neutrophils % Lymphocytes % (Manual) Monocytes % (Manual) Basophils % (Manual) Platelet Estimate PT INR APTT pO2 VBG pH VBG pCO2 VBG HCO3 VBG Total CO2 VBG O2 Sat (Calc) VBG Base Excess VBG Potassium Glucose Lactate FiO2 Blood Gas Comments Crit Value Called To Crit Value Called By Crit Value Read Back Blood Gas Notified Time Sodium Potassium Chloride Carbon Dioxide Anion Gap BUN Creatinine Est GFR ( Amer) Est GFR (Non-Af Amer) POC Glucose (mg/dL) 242 H 243 H 246 H Random Glucose Hemoglobin A1c Lactic Acid Calcium Phosphorus Magnesium Total Bilirubin AST ALT Alkaline Phosphatase Total Protein Albumin Globulin Albumin/Globulin Ratio Venous Blood Potassium Urine Color Urine Clarity Urine pH Ur Specific Romayor Urine Protein Urine Glucose (UA) Urine Ketones Urine Blood Urine Nitrate Urine Bilirubin Urine Urobilinogen Ur Leukocyte Esterase Urine RBC (Auto) Urine WBC Clumps (Auto) Urine Microscopic WBC Ur Squamous Epith Cells Urine Bacteria Blood Type Blood Type Confirm Antibody Screen BBK History Checked 12/03/18 12/03/18 12/03/18 04:10 04:15 04:15 WBC 13.4 H RBC 5.01 Hgb 13.7 Hct 42.2 MCV 84.3 MCH 27.4 MCHC 32.5 L RDW 12.8 Plt Count 204 MPV 8.7 Neut % (Auto) 85.4 H Lymph % (Auto) 1.7 L Perry % (Auto) 8.7 Eos % (Auto) 3.9 Baso % (Auto) 0.3 Neut # (Auto) 11.4 H Lymph # (Auto) 0.2 L Perry # (Auto) 1.2 H Eos # (Auto) 0.5 Baso # (Auto) 0.0 Neutrophils % (Manual) Band Neutrophils % Lymphocytes % (Manual) Monocytes % (Manual) Basophils % (Manual) Platelet Estimate PT INR APTT pO2 VBG pH VBG pCO2 VBG HCO3 VBG Total CO2 VBG O2 Sat (Calc) VBG Base Excess VBG Potassium Glucose Lactate FiO2 Blood Gas Comments Crit Value Called To Crit Value Called By Crit Value Read Back Blood Gas Notified Time Sodium 133 Potassium 3.7 Chloride 103 Carbon Dioxide 18 L Anion Gap 16 BUN 41 H Creatinine 1.8 H Est GFR ( Amer) 52 Est GFR (Non-Af Amer) 43 POC Glucose (mg/dL) Random Glucose 231 H Hemoglobin A1c Lactic Acid 1.5 Calcium 9.4 Phosphorus 2.0 L Magnesium 2.1 Total Bilirubin 0.4 AST 21 ALT 24 Alkaline Phosphatase 120 Total Protein 6.3 Albumin 3.3 L Globulin 3.0 Albumin/Globulin Ratio 1.1 Venous Blood Potassium Urine Color Urine Clarity Urine pH Ur Specific Romayor Urine Protein Urine Glucose (UA) Urine Ketones Urine Blood Urine Nitrate Urine Bilirubin Urine Urobilinogen Ur Leukocyte Esterase Urine RBC (Auto) Urine WBC Clumps (Auto) Urine Microscopic WBC Ur Squamous Epith Cells Urine Bacteria Blood Type Blood Type Confirm Antibody Screen BBK History Checked 12/03/18 12/03/18 12/03/18 04:15 05:12 06:11 WBC RBC Hgb Hct MCV MCH MCHC RDW Plt Count MPV Neut % (Auto) Lymph % (Auto) Perry % (Auto) Eos % (Auto) Baso % (Auto) Neut # (Auto) Lymph # (Auto) Perry # (Auto) Eos # (Auto) Baso # (Auto) Neutrophils % (Manual) Band Neutrophils % Lymphocytes % (Manual) Monocytes % (Manual) Basophils % (Manual) Platelet Estimate PT INR APTT pO2 VBG pH VBG pCO2 VBG HCO3 VBG Total CO2 VBG O2 Sat (Calc) VBG Base Excess VBG Potassium Glucose Lactate FiO2 Blood Gas Comments Crit Value Called To Crit Value Called By Crit Value Read Back Blood Gas Notified Time Sodium Potassium Chloride Carbon Dioxide Anion Gap BUN Creatinine Est GFR ( Amer) Est GFR (Non-Af Amer) POC Glucose (mg/dL) 250 H 237 H Random Glucose Hemoglobin A1c 11.6 H Lactic Acid Calcium Phosphorus Magnesium Total Bilirubin AST ALT Alkaline Phosphatase Total Protein Albumin Globulin Albumin/Globulin Ratio Venous Blood Potassium Urine Color Urine Clarity Urine pH Ur Specific Romayor Urine Protein Urine Glucose (UA) Urine Ketones Urine Blood Urine Nitrate Urine Bilirubin Urine Urobilinogen Ur Leukocyte Esterase Urine RBC (Auto) Urine WBC Clumps (Auto) Urine Microscopic WBC Ur Squamous Epith Cells Urine Bacteria Blood Type Blood Type Confirm Antibody Screen BBK History Checked 12/03/18 12/03/18 12/03/18 07:02 08:18 09:01 WBC RBC Hgb Hct MCV MCH MCHC RDW Plt Count MPV Neut % (Auto) Lymph % (Auto) Perry % (Auto) Eos % (Auto) Baso % (Auto) Neut # (Auto) Lymph # (Auto) Perry # (Auto) Eos # (Auto) Baso # (Auto) Neutrophils % (Manual) Band Neutrophils % Lymphocytes % (Manual) Monocytes % (Manual) Basophils % (Manual) Platelet Estimate PT INR APTT pO2 VBG pH VBG pCO2 VBG HCO3 VBG Total CO2 VBG O2 Sat (Calc) VBG Base Excess VBG Potassium Glucose Lactate FiO2 Blood Gas Comments Crit Value Called To Crit Value Called By Crit Value Read Back Blood Gas Notified Time Sodium Potassium Chloride Carbon Dioxide Anion Gap BUN Creatinine Est GFR ( Amer) Est GFR (Non-Af Amer) POC Glucose (mg/dL) 254 H 265 H 288 H Random Glucose Hemoglobin A1c Lactic Acid Calcium Phosphorus Magnesium Total Bilirubin AST ALT Alkaline Phosphatase Total Protein Albumin Globulin Albumin/Globulin Ratio Venous Blood Potassium Urine Color Urine Clarity Urine pH Ur Specific Romayor Urine Protein Urine Glucose (UA) Urine Ketones Urine Blood Urine Nitrate Urine Bilirubin Urine Urobilinogen Ur Leukocyte Esterase Urine RBC (Auto) Urine WBC Clumps (Auto) Urine Microscopic WBC Ur Squamous Epith Cells Urine Bacteria Blood Type Blood Type Confirm Antibody Screen BBK History Checked 12/03/18 12/03/18 12/03/18 10:36 12:09 13:29 WBC RBC Hgb Hct MCV MCH MCHC RDW Plt Count MPV Neut % (Auto) Lymph % (Auto) Perry % (Auto) Eos % (Auto) Baso % (Auto) Neut # (Auto) Lymph # (Auto) Perry # (Auto) Eos # (Auto) Baso # (Auto) Neutrophils % (Manual) Band Neutrophils % Lymphocytes % (Manual) Monocytes % (Manual) Basophils % (Manual) Platelet Estimate PT INR APTT pO2 VBG pH VBG pCO2 VBG HCO3 VBG Total CO2 VBG O2 Sat (Calc) VBG Base Excess VBG Potassium Glucose Lactate FiO2 Blood Gas Comments Crit Value Called To Crit Value Called By Crit Value Read Back Blood Gas Notified Time Sodium Potassium Chloride Carbon Dioxide Anion Gap BUN Creatinine Est GFR ( Amer) Est GFR (Non-Af Amer) POC Glucose (mg/dL) 336 H 270 H 275 H Random Glucose Hemoglobin A1c Lactic Acid Calcium Phosphorus Magnesium Total Bilirubin AST ALT Alkaline Phosphatase Total Protein Albumin Globulin Albumin/Globulin Ratio Venous Blood Potassium Urine Color Urine Clarity Urine pH Ur Specific Romayor Urine Protein Urine Glucose (UA) Urine Ketones Urine Blood Urine Nitrate Urine Bilirubin Urine Urobilinogen Ur Leukocyte Esterase Urine RBC (Auto) Urine WBC Clumps (Auto) Urine Microscopic WBC Ur Squamous Epith Cells Urine Bacteria Blood Type Blood Type Confirm Antibody Screen BBK History Checked 12/03/18 12/03/18 12/03/18 15:04 16:24 16:45 WBC RBC Hgb Hct MCV MCH MCHC RDW Plt Count MPV Neut % (Auto) Lymph % (Auto) Perry % (Auto) Eos % (Auto) Baso % (Auto) Neut # (Auto) Lymph # (Auto) Perry # (Auto) Eos # (Auto) Baso # (Auto) Neutrophils % (Manual) Band Neutrophils % Lymphocytes % (Manual) Monocytes % (Manual) Basophils % (Manual) Platelet Estimate PT INR APTT pO2 VBG pH VBG pCO2 VBG HCO3 VBG Total CO2 VBG O2 Sat (Calc) VBG Base Excess VBG Potassium Glucose Lactate FiO2 Blood Gas Comments Crit Value Called To Crit Value Called By Crit Value Read Back Blood Gas Notified Time Sodium 136 Potassium 4.2 Chloride 105 Carbon Dioxide 20 L Anion Gap 15 BUN 32 H Creatinine 1.4 Est GFR ( Amer) > 60 Est GFR (Non-Af Amer) 57 POC Glucose (mg/dL) 250 H 276 H Random Glucose 246 H Hemoglobin A1c Lactic Acid Calcium 9.4 Phosphorus Magnesium Total Bilirubin AST ALT Alkaline Phosphatase Total Protein Albumin Globulin Albumin/Globulin Ratio Venous Blood Potassium Urine Color Urine Clarity Urine pH Ur Specific Romayor Urine Protein Urine Glucose (UA) Urine Ketones Urine Blood Urine Nitrate Urine Bilirubin Urine Urobilinogen Ur Leukocyte Esterase Urine RBC (Auto) Urine WBC Clumps (Auto) Urine Microscopic WBC Ur Squamous Epith Cells Urine Bacteria Blood Type Blood Type Confirm Antibody Screen BBK History Checked 12/03/18 12/03/18 12/03/18 18:01 19:51 21:55 WBC RBC Hgb Hct MCV MCH MCHC RDW Plt Count MPV Neut % (Auto) Lymph % (Auto) Perry % (Auto) Eos % (Auto) Baso % (Auto) Neut # (Auto) Lymph # (Auto) Perry # (Auto) Eos # (Auto) Baso # (Auto) Neutrophils % (Manual) Band Neutrophils % Lymphocytes % (Manual) Monocytes % (Manual) Basophils % (Manual) Platelet Estimate PT INR APTT pO2 VBG pH VBG pCO2 VBG HCO3 VBG Total CO2 VBG O2 Sat (Calc) VBG Base Excess VBG Potassium Glucose Lactate FiO2 Blood Gas Comments Crit Value Called To Crit Value Called By Crit Value Read Back Blood Gas Notified Time Sodium Potassium Chloride Carbon Dioxide Anion Gap BUN Creatinine Est GFR ( Amer) Est GFR (Non-Af Amer) POC Glucose (mg/dL) 260 H 260 H 193 H Random Glucose Hemoglobin A1c Lactic Acid Calcium Phosphorus Magnesium Total Bilirubin AST ALT Alkaline Phosphatase Total Protein Albumin Globulin Albumin/Globulin Ratio Venous Blood Potassium Urine Color Urine Clarity Urine pH Ur Specific Romayor Urine Protein Urine Glucose (UA) Urine Ketones Urine Blood Urine Nitrate Urine Bilirubin Urine Urobilinogen Ur Leukocyte Esterase Urine RBC (Auto) Urine WBC Clumps (Auto) Urine Microscopic WBC Ur Squamous Epith Cells Urine Bacteria Blood Type Blood Type Confirm Antibody Screen BBK History Checked 12/03/18 12/04/18 12/04/18 23:51 04:15 04:31 WBC 8.8 RBC 4.64 Hgb 12.7 Hct 38.4 MCV 82.7 MCH 27.4 MCHC 33.2 RDW 12.7 Plt Count 207 MPV Neut % (Auto) Lymph % (Auto) Perry % (Auto) Eos % (Auto) Baso % (Auto) Neut # (Auto) Lymph # (Auto) Perry # (Auto) Eos # (Auto) Baso # (Auto) Neutrophils % (Manual) Band Neutrophils % Lymphocytes % (Manual) Monocytes % (Manual) Basophils % (Manual) Platelet Estimate PT INR APTT pO2 VBG pH VBG pCO2 VBG HCO3 VBG Total CO2 VBG O2 Sat (Calc) VBG Base Excess VBG Potassium Glucose Lactate FiO2 Blood Gas Comments Crit Value Called To Crit Value Called By Crit Value Read Back Blood Gas Notified Time Sodium Potassium Chloride Carbon Dioxide Anion Gap BUN Creatinine Est GFR ( Amer) Est GFR (Non-Af Amer) POC Glucose (mg/dL) 180 H Random Glucose Hemoglobin A1c Lactic Acid Calcium Phosphorus Magnesium Total Bilirubin AST ALT Alkaline Phosphatase Total Protein Albumin Globulin Albumin/Globulin Ratio Venous Blood Potassium Urine Color Urine Clarity Urine pH Ur Specific Romayor Urine Protein Urine Glucose (UA) Urine Ketones Urine Blood Urine Nitrate Urine Bilirubin Urine Urobilinogen Ur Leukocyte Esterase Urine RBC (Auto) Urine WBC Clumps (Auto) Urine Microscopic WBC Ur Squamous Epith Cells Urine Bacteria Blood Type Blood Type Confirm O POSITIVE Antibody Screen BBK History Checked 12/04/18 12/04/18 12/04/18 04:31 04:31 06:03 WBC RBC Hgb Hct MCV MCH MCHC RDW Plt Count MPV Neut % (Auto) Lymph % (Auto) Perry % (Auto) Eos % (Auto) Baso % (Auto) Neut # (Auto) Lymph # (Auto) Perry # (Auto) Eos # (Auto) Baso # (Auto) Neutrophils % (Manual) Band Neutrophils % Lymphocytes % (Manual) Monocytes % (Manual) Basophils % (Manual) Platelet Estimate PT INR APTT pO2 VBG pH VBG pCO2 VBG HCO3 VBG Total CO2 VBG O2 Sat (Calc) VBG Base Excess VBG Potassium Glucose Lactate FiO2 Blood Gas Comments Crit Value Called To Crit Value Called By Crit Value Read Back Blood Gas Notified Time Sodium 136 Potassium 4.0 Chloride 108 H Carbon Dioxide 19 L Anion Gap 13 BUN 26 H Creatinine 1.3 Est GFR ( Amer) > 60 Est GFR (Non-Af Amer) > 60 POC Glucose (mg/dL) 248 H Random Glucose 259 H Hemoglobin A1c 11.8 H Lactic Acid Calcium 9.0 Phosphorus Magnesium Total Bilirubin AST ALT Alkaline Phosphatase Total Protein Albumin Globulin Albumin/Globulin Ratio Venous Blood Potassium Urine Color Urine Clarity Urine pH Ur Specific Romayor Urine Protein Urine Glucose (UA) Urine Ketones Urine Blood Urine Nitrate Urine Bilirubin Urine Urobilinogen Ur Leukocyte Esterase Urine RBC (Auto) Urine WBC Clumps (Auto) Urine Microscopic WBC Ur Squamous Epith Cells Urine Bacteria Blood Type Blood Type Confirm Antibody Screen BBK History Checked 12/04/18 12/04/18 12/04/18 11:21 16:26 20:59 WBC RBC Hgb Hct MCV MCH MCHC RDW Plt Count MPV Neut % (Auto) Lymph % (Auto) Perry % (Auto) Eos % (Auto) Baso % (Auto) Neut # (Auto) Lymph # (Auto) Perry # (Auto) Eos # (Auto) Baso # (Auto) Neutrophils % (Manual) Band Neutrophils % Lymphocytes % (Manual) Monocytes % (Manual) Basophils % (Manual) Platelet Estimate PT INR APTT pO2 VBG pH VBG pCO2 VBG HCO3 VBG Total CO2 VBG O2 Sat (Calc) VBG Base Excess VBG Potassium Glucose Lactate FiO2 Blood Gas Comments Crit Value Called To Crit Value Called By Crit Value Read Back Blood Gas Notified Time Sodium Potassium Chloride Carbon Dioxide Anion Gap BUN Creatinine Est GFR ( Amer) Est GFR (Non-Af Amer) POC Glucose (mg/dL) 273 H 266 H 203 H Random Glucose Hemoglobin A1c Lactic Acid Calcium Phosphorus Magnesium Total Bilirubin AST ALT Alkaline Phosphatase Total Protein Albumin Globulin Albumin/Globulin Ratio Venous Blood Potassium Urine Color Urine Clarity Urine pH Ur Specific Rom[place]or Urine Protein Urine Glucose (UA) Urine Ketones Urine Blood Urine Nitrate Urine Bilirubin Urine Urobilinogen Ur Leukocyte Esterase Urine RBC (Auto) Urine WBC Clumps (Auto) Urine Microscopic WBC Ur Squamous Epith Cells Urine Bacteria Blood Type Blood Type Confirm Antibody Screen BBK History Checked 12/05/18 12/05/18 05:39 11:33 WBC RBC Hgb Hct MCV MCH MCHC RDW Plt Count MPV Neut % (Auto) Lymph % (Auto) Perry % (Auto) Eos % (Auto) Baso % (Auto) Neut # (Auto) Lymph # (Auto) Perry # (Auto) Eos # (Auto) Baso # (Auto) Neutrophils % (Manual) Band Neutrophils % Lymphocytes % (Manual) Monocytes % (Manual) Basophils % (Manual) Platelet Estimate PT INR APTT pO2 VBG pH VBG pCO2 VBG HCO3 VBG Total CO2 VBG O2 Sat (Calc) VBG Base Excess VBG Potassium Glucose Lactate FiO2 Blood Gas Comments Crit Value Called To Crit Value Called By Crit Value Read Back Blood Gas Notified Time Sodium Potassium Chloride Carbon Dioxide Anion Gap BUN Creatinine Est GFR ( Amer) Est GFR (Non-Af Amer) POC Glucose (mg/dL) 192 H 237 H Random Glucose Hemoglobin A1c Lactic Acid Calcium Phosphorus Magnesium Total Bilirubin AST ALT Alkaline Phosphatase Total Protein Albumin Globulin Albumin/Globulin Ratio Venous Blood Potassium Urine Color Urine Clarity Urine pH Ur Specific [place] Urine Protein Urine Glucose (UA) Urine Ketones Urine Blood Urine Nitrate Urine Bilirubin Urine Urobilinogen Ur Leukocyte Esterase Urine RBC (Auto) Urine WBC Clumps (Auto) Urine Microscopic WBC Ur Squamous Epith Cells Urine Bacteria Blood Type Blood Type Confirm Antibody Screen BBK History Checked Microbiology 12/02/18 11:31 Naris MRSA Culture (Admit) - Final MRSA NOT DETECTED 12/02/18 16:50 Blood Blood Culture - Preliminary NO GROWTH AFTER 48 HOURS 12/02/18 14:30 Blood Blood Culture - Preliminary NO GROWTH AFTER 48 HOURS 12/02/18 20:40 Urine,Clean Catch Urine Culture - Final No Growth (<1,000 CFU/ML) 12/02/18 16:50 Buttock Gram Stain - Final 12/02/18 16:50 Buttock Wound Culture - Final Staphylococcus Aureus Assessment and Plan (1) Cellulitis and abscess of buttock Status: Acute (2) Severe sepsis Status: Acute - Assessment and Plan (Free Text) Assessment: A/P- 38 year old male with pmh of renal transplant on immune suppressant meds admitted with left buttock abscess. s/p I and D with packing in place. clinically improved. remains afebrile leukocytosis has resolved. blood cx- neg x 2 Wound cx- MSSA PLan- day #3 on Iv vanco. would ahve advised 2 more days of Zuhair ntibiotics but patietn is adamnt about going home today and is cleared from surgical standpoint. hence advise to be d/c home on Oral bactrim DS BID for 10-14 days. advise close f/u with surgical clinic in few days. wound care as per surgical team. advised pt. if he develops any fve eror malodor to return to ER all above also d/w patient and his questions were answered and he verbalizes full understanding of all above and agrees with above plan of care. Critical Care time spent 35 minutes.
[2018-12-05 12:48] VITALS: PULSE 67; TEMP 98.2
--- NOTE | 2018-12-05 16:33 | CP.PCM.PN ---
Subjective - Date & Time of Evaluation Date of Evaluation: 12/04/18 Objective - Vital Signs/Intake and Output Vital Signs (last 24 hours): Temp Pulse Resp BP Pulse Ox 98.2 F 67 14 130/92 H 100 12/05/18 12:00 12/05/18 12:00 12/05/18 12:00 12/05/18 12:00 12/05/18 12:00 Intake and Output: 12/05/18 12/05/18 06:59 18:59 Intake Total 2400 100 Output Total 610 Balance 1790 100 - Medications Medications: Current Medications Acetaminophen (Tylenol 325mg Tab) 975 mg PO Q6 PRN PRN Reason: Pain, moderate (4-7) Last Admin: 12/04/18 22:33 Dose: 975 mg Dextrose (Dextrose 50% Inj) 0 ml IV STAT PRN; Protocol PRN Reason: Hypoglycemia Protocol Dextrose (Glutose 15) 0 gm PO ONCE PRN; Protocol PRN Reason: Hypoglycemia Protocol Enoxaparin Sodium (Lovenox) 40 mg SC DAILY [facility]; Protocol Last Admin: 12/05/18 08:44 Dose: 40 mg Glucagon (Glucagen Diagnostic Kit) 0 mg IM STAT PRN; Protocol PRN Reason: Hypoglycemia Protocol Home Med (Mycophenolic Acid Dr [Myfortic Dr]) 720 mg PO Q12 [facility] Last Admin: 12/05/18 08:44 Dose: 720 mg Vancomycin HCl 500 mg/ Sodium (Chloride) 100 mls @ 100 mls/hr IVPB Q12 [facility]; Protocol Last Admin: 12/05/18 08:46 Dose: 100 mls/hr Insulin Detemir (Levemir) 30 units SC HS [facility] Insulin Human Lispro (Humalog) 0 units SC ACHS [facility]; Protocol Last Admin: 12/05/18 12:31 Dose: Not Given Insulin Human Lispro (Humalog) 12 units SC AC [facility] Last Admin: 12/05/18 12:32 Dose: 12 unit Prednisone (Prednisone Tab) 5 mg PO DAILY [facility] Last Admin: 12/05/18 08:45 Dose: 5 mg Prednisone (Prednisone Tab) 2.5 mg PO QPM@2100 [facility] Last Admin: 12/04/18 20:20 Dose: 2.5 mg Sitagliptin Phosphate (Januvia) 100 mg PO DAILY [facility] Last Admin: 12/05/18 08:44 Dose: 100 mg Tacrolimus (Prograf Cap) 5 mg PO Q12 [facility] Last Admin: 12/05/18 08:45 Dose: 5 mg - Labs Labs: 12/04/18 04:31 12/04/18 04:31 PT 12.5 Seconds (9.8-13.1) 12/02/18 14:30 INR 1.1 12/02/18 14:30 APTT 32.7 Seconds (25.6-37.1) 12/02/18 14:30
--- NOTE | 2018-12-05 16:33 | CP.PCM.DIS ---
Provider - Provider Date of Admission: 12/02/18 16:06 Attending physician: Valencia Bingham MD Consults: 12/02/18 16:55 Physician Consult Stat Comment: Consulting Provider: Yuriy Colunga Consulting Physician: Yuriy Colunga Reason for Consult: abscess 12/02/18 17:54 Infectious Disease Consult Stat Comment: Consulting Provider: Catrachito Torres Consulting Physician: Catrachito Torres Reason for Consult: Sepsis, left buttock abscess. 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 Time Spent in preparation of Discharge (in minutes): 40 Diagnosis - Discharge Diagnosis (1) Immunocompromised patient Status: Acute (2) Cellulitis and abscess of buttock Status: Acute (3) DKA (diabetic ketoacidoses) Status: Acute (4) Severe sepsis Status: Acute Hospital Course - Lab Results Lab Results: Micro Results 12/02/18 14:30 Blood Blood Culture - Preliminary NO GROWTH AFTER 3 DAYS 12/02/18 11:31 Naris MRSA Culture (Admit) - Final MRSA NOT DETECTED 12/02/18 16:50 Blood Blood Culture - Preliminary NO GROWTH AFTER 48 HOURS 12/02/18 20:40 Urine,Clean Catch Urine Culture - Final No Growth (<1,000 CFU/ML) 12/02/18 16:50 Buttock Gram Stain - Final 12/02/18 16:50 Buttock Wound Culture - Final Staphylococcus Aureus Most Recent Lab Values WBC 8.8 K/uL (4.8-10.8) 12/04/18 04:31 RBC 4.64 Mil/uL (4.40-5.90) 12/04/18 04:31 Hgb 12.7 g/dL (12.0-18.0) 12/04/18 04:31 Hct 38.4 % (35.0-51.0) 12/04/18 04:31 MCV 82.7 fl (80.0-94.0) 12/04/18 04:31 MCH 27.4 pg (27.0-31.0) 12/04/18 04:31 MCHC 33.2 g/dL (33.0-37.0) 12/04/18 04:31 RDW 12.7 % (11.5-14.5) 12/04/18 04:31 Plt Count 207 K/uL (130-400) 12/04/18 04:31 MPV 8.7 fl (7.2-11.7) 12/03/18 04:15 Neut % (Auto) 85.4 % (50.0-75.0) H 12/03/18 04:15 Lymph % (Auto) 1.7 % (20.0-40.0) L 12/03/18 04:15 [place] % (Auto) 8.7 % (0.0-10.0) 12/03/18 04:15 Eos % (Auto) 3.9 % (0.0-4.0) 12/03/18 04:15 Baso % (Auto) 0.3 % (0.0-2.0) 12/03/18 04:15 Neut # (Auto) 11.4 K/uL (1.8-7.0) H 12/03/18 04:15 Lymph # (Auto) 0.2 K/uL (1.0-4.3) L 12/03/18 04:15 [place] # (Auto) 1.2 K/uL (0.0-0.8) H 12/03/18 04:15 Eos # (Auto) 0.5 K/uL (0.0-0.7) 12/03/18 04:15 Baso # (Auto) 0.0 K/uL (0.0-0.2) 12/03/18 04:15 Neutrophils % (Manual) 76 % (42-75) H 12/02/18 14:30 Band Neutrophils % 4 % (0-2) H 12/02/18 14:30 Lymphocytes % (Manual) 8 % (20-50) L 12/02/18 14:30 Monocytes % (Manual) 11 % (0-10) H 12/02/18 14:30 Basophils % (Manual) 1 % (0-2) 12/02/18 14:30 Platelet Estimate Normal (NORMAL) 12/02/18 14:30 PT 12.5 Seconds (9.8-13.1) 12/02/18 14:30 INR 1.1 04/12/19 14:30 APTT 32.7 Seconds (25.6-37.1) 12/02/18 14:30 pO2 29 mm/Hg (30-55) L 12/02/18 21:32 VBG pH 7.28 (7.32-7.43) L 12/02/18 21:32 VBG pCO2 36 mmHg (40-60) L 12/02/18 21:32 VBG HCO3 16.5 mmol/L 12/02/18 21:32 VBG Total CO2 18.0 mmol/L (22-28) L 12/02/18 21:32 VBG O2 Sat (Calc) 59.8 % (40-65) 12/02/18 21:32 VBG Base Excess -9.0 mmol/L (0.0-2.0) L 12/02/18 21:32 VBG Potassium 4.2 mmol/L (3.6-5.2) 12/02/18 21:32 Sodium 130.0 mmol/L (132-148) L 12/02/18 21:32 Chloride 98.0 mmol/L (98-107) 12/02/18 21:32 Glucose 260 mg/dL (75-110) H 12/02/18 21:32 Lactate 1.8 mmol/L (0.7-2.1) 12/02/18 21:32 FiO2 21.0 % 12/02/18 21:32 Blood Gas Comments Lac=2.2 12/02/18 15:03 Crit Value Called To brandi Brower 12/02/18 15:03 Crit Value Called By 22 12/02/18 15:03 Crit Value Read Back Y 12/02/18 15:03 Blood Gas Notified Time 1513 12/02/18 15:03 Sodium 136 mmol/l (132-148) 12/04/18 04:31 Potassium 4.0 MMOL/L (3.6-5.0) 12/04/18 04:31 Chloride 108 mmol/L (98-107) H 12/04/18 04:31 Carbon Dioxide 19 mmol/L (22-30) L 12/04/18 04:31 Anion Gap 13 (10-20) 12/04/18 04:31 BUN 26 mg/dl (9-20) H 12/04/18 04:31 Creatinine 1.3 mg/dl (0.8-1.5) 12/04/18 04:31 Est GFR ( Amer) > 60 12/04/18 04:31 Est GFR (Non-Af Amer) > 60 12/04/18 04:31 POC Glucose (mg/dL) 237 mg/dL (65-110) H 12/05/18 11:33 Random Glucose 259 mg/dL (75-110) H 12/04/18 04:31 Hemoglobin A1c 11.8 % (4.2-6.5) H 12/04/18 04:31 Lactic Acid 1.5 mmol/L (0.7-2.1) 12/03/18 04:10 Calcium 9.0 mg/dL (8.4-10.2) 12/04/18 04:31 Phosphorus 2.0 mg/dl (2.5-4.5) L 12/03/18 04:15 Magnesium 2.1 MG/DL (1.6-2.3) 12/03/18 04:15 Total Bilirubin 0.4 mg/dl (0.2-1.3) 12/03/18 04:15 AST 21 U/L (17-59) 12/03/18 04:15 ALT 24 U/L (21-72) 12/03/18 04:15 Alkaline Phosphatase 120 U/L (38-126) 12/03/18 04:15 Total Protein 6.3 G/DL (6.3-8.2) 12/03/18 04:15 Albumin 3.3 g/dL (3.5-5.0) L 12/03/18 04:15 Globulin 3.0 gm/dL (2.2-3.9) 12/03/18 04:15 Albumin/Globulin Ratio 1.1 (1.0-2.1) 12/03/18 04:15 Venous Blood Potassium 4.2 mmol/L (3.6-5.2) 12/02/18 21:32 Urine Color Yellow (YELLOW) 12/02/18 20:40 Urine Clarity Turbid (Clear) 12/02/18 20:40 Urine pH 6.0 (5.0-8.0) 12/02/18 20:40 Ur Specific [place] 1.024 (1.003-1.030) 12/02/18 20:40 Urine Protein 100 mg/dL (NEGATIVE) 12/02/18 20:40 Urine Glucose (UA) >=500 mg/dL (NEGATIVE) 12/02/18 20:40 Urine Ketones 80 mg/dL (NEGATIVE) 12/02/18 20:40 Urine Blood Small (NEGATIVE) 12/02/18 20:40 Urine Nitrate Negative (NEGATIVE) 12/02/18 20:40 Urine Bilirubin Negative (NEGATIVE) 12/02/18 20:40 Urine Urobilinogen 0.2-1.0 mg/dL (0.2-1.0) 12/02/18 20:40 Ur Leukocyte Esterase Large [place]/uL (Negative) 12/02/18 20:40 Urine RBC (Auto) 7 /hpf (0-3) H 12/02/18 20:40 Urine WBC Clumps (Auto) Rare /hpf (NONE) H 12/02/18 20:40 Urine Microscopic WBC 819 /hpf (0-5) H 12/02/18 20:40 Ur Squamous Epith Cells 2 /hpf (0-5) 12/02/18 20:40 Urine Bacteria Occ (<OCC) H 12/02/18 20:40 Blood Type O POSITIVE 12/02/18 14:30 Blood Type Confirm O POSITIVE 12/04/18 04:15 Antibody Screen Negative 12/02/18 14:30 BBK History Checked No verified bt 12/02/18 14:30 Discharge Exam - Head Exam Head Exam: ATRAUMATIC, NORMOCEPHALIC Discharge Plan - Discharge Medications Prescriptions: Sulfamethoxazole/Trimethoprim [Bactrim DS 800 mg-160 mg] 1 tab PO Q12 14 Days #28 tab Insulin Lispro [Humalog Kwikpen U-100] 100 unit SQ TID 30 Days insuln.pen Insulin Glargine,Hum.rec.anlog [Lantus Solostar] 20 unit SQ DAILY 30 Days insuln.pen - Follow Up Plan Condition: FAIR Disposition: HOME/ ROUTINE Instructions: Diabetic Ketoacidosis (DC), Diabetic Ketoacidosis (GEN), Sepsis (DC), Sepsis (GEN), Abscess (GEN)
[2018-12-05] MEDS ORDERED: Insulin Detemir 100 Units/ml Inj SC SCH ×2 (22:00)
--- NOTE | 2018-12-05 23:22 | PN ---
DATE: 12/05/2018 CRITICAL CARE PROGRESS NOTE LOCATION: The patient is in ICU, bed 423. TIME SPENT: 35 minutes. The patient is seen and evaluated at the bedside. Past medical, surgical, family, social history reviewed. SUBJECTIVE: A 38-year-old male with diabetes mellitus type 2, polycystic kidney disease, status post renal transplant 6 years ago, admitted with left gluteal abscess and uncontrolled diabetes, in DKA. Status post insulin drip with improvement in anion gap metabolic acidosis, still remains with low CO2, status post incision and drainage and packing of the left gluteal abscess. PHYSICAL EXAMINATION: GENERAL: This morning, alert, awake, follows commands appropriate, wants to go home. VITAL SIGNS: Temperature 98.9, heart rate 64 and regular, blood pressure 130/92, mean arterial pressure 104, respiratory rate 14, saturation 100%. Intake 4640, output 1210, positive balance 3430. Weight of 260 pounds. HEAD, EYES, EARS, NOSE AND THROAT: Pupils are reactive. Conjunctivae pink. Sclerae are white. NECK: Supple. Trachea central. CHEST: Bilateral breath sounds, clear to auscultation. HEART: Rhythm regular. S1, S2 normal intensity. No S3, S4, gallop. No audible murmur. ABDOMEN: Bowel sounds are present. Soft. Liver and spleen not palpable. Bladder not distended. EXTREMITIES: No clubbing, cyanosis or edema. Left gluteal area clean and packing change, appreciate surgery followup. NEUROLOGIC: Nonfocal. CURRENT MEDICATIONS: Tylenol 975 mg every 6 hours p.r.n., Lovenox 40 mg subcu daily, Levemir 26 units subcu at bedtime, Accu-Chek with regular insulin coverage, prednisone 5 mg p.o. daily, prednisone 2.5 mg p.o. at night, Januvia 100 mg p.o. daily, Prograf 5 mg p.o. every 12 hours, vancomycin 500 mg IV every 12 hours. IMPRESSION: 1. Neurologic: Alert, awake, follows commands appropriate. 2. Pulmonary: No acute issues. 3. Cardiac: Normotensive. Telemetry sinus rhythm. 4. Gastrointestinal: No acute issues. 5. Endocrinology: Admitted with diabetic ketoacidosis, off insulin drip, on Levaquin and Januvia. 6. Renal: Status post renal transplant for polycystic renal disease, on Prograf, prednisone. Maintain blood sugar in the 110-140 mg and hemoglobin A1c less than 8. No history of hypothyroidism. Continue deep venous thrombosis and gastrointestinal prophylaxis, optimize blood sugar, adjust the dose of Levemir as needed Jason Yarbrough MD
--- NOTE | 2018-12-06 02:53 | PN ---
DATE: 12/05/2018 ENDOCRINOLOGY FOLLOWUP NOTE LOCATION: ICU, room 423. SUBJECTIVE: This is a 38-year-old male with recent uncontrolled type 2 insulin-requiring diabetes, now being followed closely for metabolic management. His glycemic levels are fluctuating but improved, and the glucose values have ranged from 192 to 203 and 237 mg/dL. LABORATORY DATA: His chemistry showed a BUN of 26, sodium 136, potassium 4, chloride 108, CO2 of 19, glucose 259, and creatinine 1.3. His hemoglobin A1c is 11.8% which is quite elevated and indicative of suboptimal metabolic control of his diabetic condition even prior to this admission. ASSESSMENT: This is a 38-year-old male with recent uncontrolled type 2 insulin-requiring diabetes with significant history of polycystic disease and prior renal transplant and currently on oral steroid therapy as given and is now being followed closely for metabolic management with recent hyperglycemic accelerations as noted thereof. His diabetic ketoacidosis and dehydration have improved accordingly as noted. He also has a left gluteal abscess with ongoing intravenous antibiotic management as given. PLAN OF MANAGEMENT: We will modify his current insulin regimen and increase the basal insulin to Levemir given as 30 units subcu at bedtime daily to start tonight. We will continue the Humalog given as 12 units t.i.d. before meals as ordered. We will obtain serial chemistries and supplement accordingly as needed. We will continue the low-dose correction scale using Humalog insulin as ordered. We will follow and advise accordingly. Mary Jane Angelo MD
== END 2018-12-05 17:15 | disposition home or self-care (01) | DRG 871 ==
LOC: H.ER 13:44 → H.ERHOLD 16:06 → H.ICU/CCU 23:08
PROVIDERS: ADMIT Internal Medicine; ATTEND Internal Medicine
PROC: 0H98XZZ Drainage of Buttock Skin, External Approach (ICD-10-PCS; principal; 2018-12-02)
DX: A41.9 Sepsis, unspecified organism (principal); N18.6 End stage renal disease; E11.10 Type 2 diabetes mellitus with ketoacidosis without coma; L03.317 Cellulitis of buttock; L02.31 Cutaneous abscess of buttock; Z94.0 Kidney transplant status; I12.0 Hypertensive chronic kidney disease with stage 5 chronic kidney disease or end stage renal disease; Q61.3 Polycystic kidney, unspecified; R65.20 Severe sepsis without septic shock; B95.61 Methicillin susceptible Staphylococcus aureus infection as the cause of diseases classified elsewhere; E11.22 Type 2 diabetes mellitus with diabetic chronic kidney disease; E86.0 Dehydration; E78.5 Hyperlipidemia, unspecified; Z79.4 Long term (current) use of insulin; Z79.52 Long term (current) use of systemic steroids